=== PATIENT | male | born 1970 | race Caucasian/White ===

== ENCOUNTER → 2016-06-12 | Outpatient (CLI) | payer BC, OTHER ==
[~2016-06-12] MED LIST: COMBIVENT U/D3 M1 INH; DEEP SEA SPRAY AU; DEPAKOTE125 MG; FLOMAX0.4 M1 DOB; FLONASE 0.05% N16 G1; FLOVENT DISKUS50 MCG AU; KEPPRA100 MG/ML GT; KEPPRA1000 MG PO; KLONOPIN GT; KLONOPIN0.25 MG/TA GT; LACTULOSE10 G/15 M1 PO; LAMICTAL150 MG GT; LAMICTAL150 MG PO; LEVOTHROID50 MCG; LEVOTHYROXINE50 MC1 PO; MUPIROCIN0.9 GM EXT; MYLICON40 MG/0.1 GT; NEXIUM PO; NEXIUM40 M1 GT; ONFI10 MG PO; ONFI20 MG; ONFI20 MG GT; ONFI20 MG PO; PATADAY2.5 ML OU; PHENOBARBITAL60 M1 GT; PHENOBARBITAL64.8 MG GT; PRILOSEC20 M1 PO; RISAMINE OINTM113 GM TP; SENNA CONCENTR8.6 MG GT; SENNA-LAX8.6 M1 GT; SYNTHROID0.05 MG PO; VALPROIC A250 MG/51 GT; VALPROIC ACID1 ML GT; VITAMIN D1000 UNI1 PO; VITAMIN D1000 UNIT PO; ZYRTEC10 M2
== END | disposition home or self-care (01) ==
LOC: CSSDAY 10:08
DX: M81.8 Other osteoporosis without current pathological fracture (principal)
CPT/HCPCS: 96372; J0897

== ENCOUNTER 2016-08-15 03:32 | Inpatient (IN) | payer BC, OTHER ==
--- NOTE | ~2016-08-15 | EKG ---
PATIENT: CHADD WILLINGHAM UNIT #: [id number] Ventricular Rate: 83 BPM Atrial Rate: 83 BPM P-R Interval: 144 ms QRS Duration: 90 ms Q-T Interval: 362 ms QTC Calculation(Bezet): 425 ms P [place]: 44 degrees Calculated R [place]: 5 degrees Calculated T [place]: 47 degrees Diagnosis Line: Normal sinus rhythm Diagnosis Line: Normal ECG Diagnosis Line: No previous ECGs available Diagnosis Line: Confirmed by GINNY ALMANZAR MD ([id number]) on 08/15/2016 Diagnosis Line: 10:44:04 AM INTERPRETING MD: YOHAN PHIPPS
--- NOTE | ~2016-08-15 | CR72 ---
[facility] A Service of [facility] RADIOLOGY TEXT RESULTS PATIENT: CHADD WILLINGHAM LOCATION: [facility] : [birth year] UNIT #: [id number] AGE: [address]: Dominick Erwin MD SEX: M ORDER DR: [id number] [place], [place] [address] [id number] I MR#: [id number] Acc #: [id number] NAME: CHADD WILLINGHAM : 1970 SEX: M STUDY DATE/TIME: 08/26/2016 5:53 UNIT: [address] ROOM: [facility] STUDY DESCRIPTION: CR Chest Single View Portable Attending Physician: Dominick Erwin M.D. Ordering Physician: Zaria Mendosa M.D. Primary Care Physician: Naveen Dave Sr., M.D. MEDICAL IMAGING REPORT This report is preliminary unless electronic signature is present EXAM Portable chest INDICATIONS Shortness of breath, respiratory failure and pneumonia for 11 days. COMPARISON STUDIES Comparison with yesterday. FINDINGS Interval complete whiteout of the right hemithorax since yesterday most suggestive of atelectasis probably from mucous plugging. Improved aeration of the left base. Heart size stable. PICC line stable. IMPRESSION Interval complete whiteout of the right hemithorax with shift of the mediastinum to the right most likely reflecting atelectasis suspected to be due to mucous plugging. Dictated by... Janes Zamudio M.D. THIS IS AN ELECTRONICALLY VERIFIED REPORT Janes Zamudio M.D. at 08/28/2016 7:47 AM ARS/barb TD: 08/26/2016 14:02 JOB #: [id number] MEDICAL IMAGING REPORT [facility] A Service of [facility] RADIOLOGY TEXT RESULTS PATIENT: CHADD WILLINGHAM LOCATION: [facility] : 68 UNIT #: [id number] AGE: [address]: Dominick Erwin MD SEX: M ORDER DR: Page 1 of 1 COPY
--- NOTE | ~2016-08-15 | CR72 ---
[facility] A Service of [facility] RADIOLOGY TEXT RESULTS PATIENT: CHADD WILLINGHAM LOCATION: [place] [address] : [birth year] UNIT #: [id number] AGE: [address]: Dominick Erwin MD SEX: M ORDER DR: [id number] [facility] [address] [facility]. [place], [place] [address] [id number] I MR#: [id number] Acc #: [id number] NAME: CHADD WILLINGHAM : 1970 SEX: M STUDY DATE/TIME: 08/28/2016 19:56 UNIT: [facility] ROOM: [facility] STUDY DESCRIPTION: CR Chest Single View Portable Attending Physician: Dominick Erwin M.D. Ordering Physician: Zaria Mendosa M.D. Primary Care Physician: Naveen Dave Sr., M.D. MEDICAL IMAGING REPORT This report is preliminary unless electronic signature is present EXAM AP portable chest 08/28/2016 HISTORY Post intubation today. COMPARISON AP portable chest 08/28/2016 at 17:53. FINDINGS The patient's chin partially obscures the upper lung zones on 1 image, and repeat imaging was necessitated. ET tube tip projects into the region of the right mainstem bronchus. This is seen on image denoted as "#2". Low volume inspiration with asymmetric elevation right hemidiaphragm and probable passive right basilar atelectasis. Ill-defined infiltrates within the right lung, suspected atelectasis, infiltrate in the medial left lung base, unchanged from prior. Mid thoracic curvature toward the right. Upper lumbar curvature toward the left. Left chest wall electronic generator device in place with lead extending over the left neck. Right arm approach PICC tip extends to the cavoatrial junction. IMPRESSION 1. Chest x-ray denoted number 2 demonstrates ET tube placement within the right mainstem bronchus. Recommend retracting about 4.5 cm into the mid thoracic trachea. I have personally called to discuss the findings and recommendations with the patient's nurse at the time of this dictation, 08/28/2016 at 08:29 p.m. 2. Ill-defined right lung infiltrates and right basilar atelectasis, suspected mild medial left basilar atelectasis or infiltrate, unchanged from prior. [facility]. [facility] A Service of [facility] RADIOLOGY TEXT RESULTS PATIENT: CHADD WILLINGHAM LOCATION: [address] : [birth year] UNIT #: [id number] AGE: [address]: Dominick Erwin MD SEX: M ORDER DR: Dictated by... Adrianne Moe M.D. THIS IS AN ELECTRONICALLY VERIFIED REPORT Adrianne Moe M.D. at 08/29/2016 10:06 AM PITO/sim TD: 08/29/2016 08:27 JOB #: [id number] MEDICAL IMAGING REPORT Page 1 of 1 COPY
--- NOTE | ~2016-08-15 | OR ---
Unit #: [id number] #: [id number] Patient: CHADD WILLINGHAM [id number] [address] [address] [id number] I MR#: [id number] NAME: CHADD WILLINGHAM ROOM: [facility] Date of Procedure: 08/28/2016 Admission Date: 08/15/2016 Surgeon: Zaria Mendosa M.D. : 1970 Attending Physician: Dominick Erwin M.D. Primary Care Physician: Naveen Dave Sr., M.D. PROCEDURE OPERATIVE NOTE PROCEDURE PERFORMED Diagnostic bronchoscopy, bronchoalveolar lavage. INDICATION FOR PROCEDURE Mucus plug. PREPROCEDURE DIAGNOSIS Mucus plug. POSTPROCEDURE DIAGNOSIS Mucus plug. DETAILS OF PROCEDURE After taking consent from the patient's family, explaining the risks and benefits, patient was placed in the appropriate position. The bronchoscope was introduced through the oral cavity. The vocal cords appeared to be symmetrically moving toward the midline. Trachea was normal. The fiona was sharp. We examined the right upper lobe, right middle lobe, right lower lobe, left upper lobe, lingula and left lower lobe. There was a thick mucus plug in the right mainstem bronchus, which was therapeutically suctioned and bronchoalveolar lavage was done. The patient tolerated the procedure very well. No endobronchial lesions were found. No complications happened. Dictated by... Alea Garland/pearl TD: 08/28/2016 12:24 JOB #: [id number] Unit #: [id number] #: [id number] Patient: CHADD WILLINGHAM PROCEDURE OPERATIVE NOTE Page 1 of 1 X Zaria Mendosa MD PROCEDURE OPERATIVE NOTE
--- NOTE | ~2016-08-15 | DS ---
Unit #: [id number] #: [id number] Patient: CHADD WILLINGHAM [id number] [address] [address] [id number] I MR#: [id number] NAME: CHADD WILLINGHAM ROOM: [facility] Age: 46 Sex: M Admission Date: 08/15/2016 : 1970 Discharge Date: 09/09/2016 Attending Physician: Dominick Erwin M.D. Primary Care Physician: Naveen Dave Sr., M.D. DISCHARGE SUMMARY FINAL DIAGNOSES 1. Acute hypoxic respiratory failure. Patient has been terminally extubated as per family's request. 2. Aspiration pneumonia. 3. Cerebral palsy. 4. Seizure disorder. 5. Septic shock. 6. Hypokalemia. 7. Hypomagnesemia. 8. Mucus plugs. Please note, patient had a very lengthy stay in the hospital. Dr. Mendosa and Dr. Valverde were involved in patient's care. CONSULTING PHYSICIANS 1. Dr. Mendosa and Dr. Valverde from pulmonary services. 2. Dr. Robles from infectious disease services. 3. Dr. Hopper from neurology services. HOSPITAL COURSE Patient was admitted for acute respiratory failure. He has had very length stay. During hospitalization, he received broad spectrum IV antibiotics. He went into acute hypoxia. Patient was intubated, and multiple attempts to wean have failed. Patient's family has decided for Do Not Resuscitate status and comfort care. Patient is being discharged to [facility] in stable condition. PHYSICAL EXAMINATION VITAL SIGNS ON DISCHARGE: Blood pressure 92/36, respiratory rate 20, pulse 91, and temperature 98.2. CHEST: Decreased air entry bilaterally. DISCHARGE INSTRUCTIONS 1. Patient is being discharged to [facility]. 2. Comfort care and palliative care. The plan of care has been discussed with Dr. Dave. Dictated by.Tony Metz M.D. Jonh TD: 09/09/2016 18:14 Unit #: [id number] #: [id number] Patient: CHADD WILLINGHAM JOB #: [id number] DISCHARGE SUMMARY Page 1 of 1 X Izzy Metz MD DISCHARGE SUMMARY
--- NOTE | ~2016-08-15 | CR72 ---
[facility] A Service of [facility] & [facility] RADIOLOGY TEXT RESULTS PATIENT: CHADD WILLINGHAM LOCATION: [address] : [birth year] UNIT #: [id number] AGE: [address]: Dominick Erwin MD SEX: M ORDER DR: [id number] [facility] [address] [facility]. [place], [place] [address] [id number] I MR#: [id number] Acc #: [id number] NAME: CHADD WILLINGHAM : 1970 SEX: M STUDY DATE/TIME: 08/28/2016 21:05 UNIT: [facility] ROOM: [facility] STUDY DESCRIPTION: CR Chest Single View Portable Attending Physician: Dominick Erwin M.D. Ordering Physician: Zaria Mendosa M.D. Primary Care Physician: Naveen Dave Sr., M.D. MEDICAL IMAGING REPORT This report is preliminary unless electronic signature is present EXAM Chest x-ray portable HISTORY ET tube placement today. Admitted 08/15/2016. Short of air. COMMENT Single frontal portable view of the chest timed 210408/28/2016 compared to prior study from 1955. FINDINGS Endotracheal tube has been repositioned and now terminates at the thoracic inlet. There is, I believe, a vagus nerve stimulator present. The right-sided PICC line terminates probably distal SVC/right atrial junction level allowing for positioning. The patient has dextroconvexed scoliosis and elevation of the right hemidiaphragm. Please correlate for diaphragmatic paralysis history. Patchy airspace disease is seen bilaterally, right greater than left. Please correlate for clinical causes of cardiogenic or noncardiogenic pulmonary edema. There is no pneumothorax or pleural effusion suspected. IMPRESSION 1. The endotracheal tube is now satisfactory. Tubes and lines, otherwise, not changed. There is some elevation of the right hemidiaphragm. Heart size is normal. Bilateral infiltrates right greater than left lung, nonspecific. Please correlate for clinical causes of cardiogenic or noncardiogenic pulmonary edema. A noncardiogenic cause is favored given cardiac silhouette size within normal limits. Dictated by... [facility] A Service of [facility] & [facility] RADIOLOGY TEXT RESULTS PATIENT: CHADD WILLINGHAM LOCATION: [address] : [birth year] UNIT #: [id number] AGE: [address]: Dominick Erwin MD SEX: M ORDER DR: Tish Nelson M.D. THIS IS AN ELECTRONICALLY VERIFIED REPORT Tish Nelson M.D. at 08/29/2016 2:27 PM SPENCER/alek TD: 08/29/2016 09:01 JOB #: [id number] MEDICAL IMAGING REPORT Page 1 of 1 COPY
--- NOTE | ~2016-08-15 | OR ---
Unit #: [id number] #: [id number] Patient: CHADD WILLINGHAM [id number] [address] [address] [id number] I MR#: [id number] NAME: CHADD WILLINGHAM ROOM: [facility] Date of Procedure: 08/15/2016 Admission Date: 08/15/2016 Surgeon: Zaria Mendosa M.D. : 1970 Attending Physician: Dominick Erwin M.D. Primary Care Physician: Naveen Dave Sr., M.D. PROCEDURE OPERATIVE NOTE PROCEDURE Diagnostic bronchoscopy. INDICATION Mucous plug. PREPROCEDURE DIAGNOSIS Mucous plug. POSTPROCEDURE DIAGNOSIS Mucous plug. DETAILS OF PROCEDURE After taking consent from the patient's family explaining the risks and benefits, the patient was placed in appropriate position. Bronchoscope introduced through the endotracheal tube which was sitting well above the fiona. There was a big thick mucous plug in the left mainstem bronchus and we did a bronchial lavage and the mucous plug was suctioned. Then we examined right upper, right middle, right lower, left upper, left lower lobe and lingula. No endobronchial lesion was found. There were thick mucoid secretions which were therapeutically suctioned. The patient tolerated the procedure very well. No complications happened. Dictated by... Alea Garland/paco TD: 08/30/2016 18:27 JOB #: [id number] Unit #: [id number] #: [id number] Patient: CHADD WILLINGHAM PROCEDURE OPERATIVE NOTE Page 1 of 1 X Zaria Mendosa MD X PROCEDURE OPERATIVE NOTE
--- NOTE | ~2016-08-15 | CO ---
Unit #: [id number] #: [id number] Patient: CHADD WILLINGHAM [id number] [facility] [address] [facility]. [place], [place] [address] [id number] I MR#: [id number] NAME: CHADD WILLINGHAM ROOM: [facility] Age: 46 Sex: M Admission Date: 08/15/2016 : 1970 Attending Physician: Dominick Erwin M.D. Primary Care Physician: Naveen Dave Sr., M.D. Consultation Date: 08/17/2016 CONSULTATION REPORT PRIMARY CARE PHYSICIAN Naveen Dave M.D. Sr. REASON FOR CONSULTATION Seizure. PATIENT IDENTIFICATION This is a 46-year-old white male, who was evaluated in room ICU, bed 11 at [facility]. SOURCE OF INFORMATION The medical records and my discussion with the patient's parents. PROBLEM LIST He was admitted for: 1. Acute hypoxemic respiratory failure. He is on a ventilator. 2. Healthcare-acquired pneumonia. 3. Sepsis. 4. History of cerebral palsy. 5. History of seizure disorder. 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 He is also status post vagal nerve stimulator, on multiple antiepileptics. 7. Dysphagia, status post PEG tube. 8. Status post colostomy bag. 9. Anemia of chronic disease. HISTORY OF PRESENT ILLNESS This is a 46-year-old gentleman, who is actually a patient of Dr. Jessica Flynn, and has epilepsy and most of the time they report petite-mal type seizure, but he has Nekoma-Gastaut syndrome and has had generalized convulsive type seizures also. His seizures are worse when he is sick, so he was admitted here because he got respiratory depression and pneumonia, and yesterday he may have had a generalized seizure. I resumed some of his medication IV and gave him Ativan and he is better right now. He was also already on Versed drip at 2 mg I believe at that time. This is exactly what happens to him and it does happen quite frequently and Ativan helps him. He is on multiple antiepileptics and I have discussed with the family and the decision was not to change his medication otherwise. He has improved his withdrawing. He does not interact much, but apparently is aware enough that whenever Unit #: [id number] #: [id number] Patient: CHADD WILLINGHAM his environment changes, he gets upset. His other very questionable. It does not look like he is in status. He was getting his medication dose, sometime he does throw up. PAST MEDICAL HISTORY As discussed above. PAST SURGICAL HISTORY As discussed above. ALLERGIES None known to us. FAMILY HISTORY Noncontributory. No seizures. SOCIAL HISTORY He has cognitive changes secondary to his cerebral palsy. He is in a assisted and when he is compromised, he is in [place]. MEDICATIONS Right now, which do include some that are at home are Zosyn, Senokot, Synthroid, magnesium sulfate, potassium chloride, Versed, Onfi 20 mg at bedtime and 10 mg b.i.d., phenobarbital 64.8 mg q.h.s., Lamictal 300 mg b.i.d., Klonopin 0.5 mg q.8, Mylicon 20 mg t.i.d., valproic acid 375 mg b.i.d., Keppra 200 mg q.12, Protonix, vitamin D, Florastor, Flonase, vancomycin. REVIEW OF SYSTEMS Could not be obtained because of his compromised state. PHYSICAL EXAMINATION VITAL SIGNS: Temperature 97.3, pulse 84, respirations 16, blood pressure 114/63, O2 saturations 100%. Weight of 137 pounds, BMI was 21. NEUROLOGIC: The patient does respond to painful stimuli. He seemed to withdraw. Beyond that, he is not communicative. Cranial nerve examination, he does have corneals and pupils sluggishly reactive. He may have some dysconjugate gaze. . I really did not see any facial asymmetry. Hearing is questionable. Tongue was midline. I could not visualize his oropharynx or uvula. Head turning was spontaneous. Motor examination demonstrated spasticity, very minimal withdrawal in the upper extremities and did not see significant movement except for 1 to 2 in the lower extremities. I could not get any reflexes. Toes are mute. Gait and coordination could not be evaluated. DIAGNOSTIC STUDIES LABORATORY RESULTS: His pO2 when he came here was 40.3, he has improved now significantly and his last pO2 was 209. Random glucose was 109, sodium was 132, AST was 109, ALT was 26. Phenobarbital level not checked. Depakene level not checked. White count was 17.8, H and H of 8.1 and 24.2, platelet count was 140. Unit #: [id number] #: [id number] Patient: CHADD WILLINGHAM IMPRESSION 1. Likely breakthrough seizures. 2. He is improved right now. He is not in status. He has Zoran-Gastaut syndrome. He has slightly intractable epilepsy. I will continue the present medication and have him follow up with Neurology as outpatient. Since we do not do epilepsy monitoring or have continuous monitoring capabilities, I will recommend that next time if there is a seizure or seizure-like events or status that he will be transferred to [facility]. I do understand at times it is not possible, but considering that his physicians do not come here and we have not had any records since he has been here and they have requested this is where the problems occur and that is my recommendation and at present, he is stable and his family agrees and I will observe him only. Again loss of consciousness precautions apply, but may not make much difference for his care otherwise because it looks like he is already on it. Call me if you have any other questions, issues, or concerns. Nothing else to add. Otherwise, I gave him one time medication of Ativan. I will continue the rest of his medication as is. Dictated by... Alea Gannon/pelon TD: 08/18/2016 06:03 JOB #: [id number] CONSULTATION REPORT Page 1 of 1 X Tino Hopper MD CONSULTATION REPORT
--- NOTE | ~2016-08-15 | CR72 ---
[facility] A Service of [facility] & [facility] RADIOLOGY TEXT RESULTS PATIENT: CHADD WILLINGHAM LOCATION: [place] [address] : [birth year] UNIT #: [id number] AGE: [address]: Dominick Erwin MD SEX: M ORDER DR: [id number] [facility] [address] [facility]. [place], [place] [address] [id number] I MR#: [id number] Acc #: [id number] NAME: CHADD WILLINGHAM : 1970 SEX: M STUDY DATE/TIME: 09/03/2016 5:52 UN[place]: [facility] [place]OM: [facility] STUDY DESCRIPTION: CR Chest Single View Portable Attending Physician: Dominick Erwin M.D. Ordering Physician: Zaria Mendosa M.D. Primary Care Physician: Naveen Dave Sr., M.D. MEDICAL IMAGING REPORT This report is preliminary unless electronic signature is present EXAM Portable chest INDICATION Intubated for respiratory distress and fever. Follow up endotracheal tube and infiltrates. FINDINGS This portable view of the chest shows the endotracheal tube tip is 2 cm above the fiona. There is increased density throughout the lower two-thirds of the right hemithorax suggesting an effusion and atelectasis and there is left base atelectasis or infiltrate. The PIC catheter and electronic device in the left side of the chest are stable. Dictated by... Bobby Mederos M.D. THIS IS AN ELECTRONICALLY VERIFIED REPORT Bobby Mederos M.D. at 09/03/2016 3:54 PM DUSTIN/sim TD: 09/03/2016 13:39 JOB #: [id number] MEDICAL IMAGING REPORT Page 1 of 1 COPY
--- NOTE | ~2016-08-15 | CT57 ---
[facility] A Service of [facility] & [facility] RADIOLOGY TEXT RESULTS PATIENT: CHADD WILLINGHAM LOCATION: [place] [address] : [birth year] UNIT #: [id number] AGE: [address]: Dominick Erwin MD SEX: M ORDER DR: [id number] [facility] [address] [facility]. [place], [place] [address] [id number] I MR#: [id number] Acc #: [id number] NAME: CHADD WILLINGHAM : 1970 SEX: M STUDY DATE/TIME: 08/20/2016 12:52 UNIT: [facility] ROOM: [facility] STUDY DESCRIPTION: CT Chest Wo Cont Attending Physician: Dominick Erwin M.D. Ordering Physician: Zaria Mendosa M.D. Primary Care Physician: Naveen Dave Sr., M.D. MEDICAL IMAGING REPORT This report is preliminary unless electronic signature is present EXAM CT chest without contrast. HISTORY Shortness of air, pneumonia. Low oxygen saturation and congestion for 2 days. Respiratory disease. TECHNIQUE This CT exam was performed with one or more of the following radiation dose reduction techniques: automatic exposure control, adjustment of mA and/or kV according to patient size, and iterative reconstruction. FINDINGS CT chest without contrast demonstrates complete atelectasis of the bilateral lower lobes and moderate atelectasis in the bilateral posterior upper lobes. There is also a focal patchy dense subsegmental infiltrate in the central left upper lobe, which could be secondary to pneumonia but is nonspecific. Evaluation of this region is limited on the recent portable chest x-rays due to overlying power pack, but this is probably partly visible along the superior left hilum, and has apparently developed compared to recent chest x-rays dating back to 08/15/16. Pneumonia is considered most likely but this is nonspecific. Moderately severe elevation of the right hemidiaphragm. Small bilateral pleural effusions. No adenopathy. Percutaneous gastrostomy tube extends into the stomach. IMPRESSION 1. Complete atelectasis of the bilateral lower lobes. Mild atelectasis in the bilateral posterior upper lobes. 2. Moderate focal subsegmental infiltrate in the central left upper lobe is only partly visualized on recent chest x-rays and apparently has developed since 08/15/16. Overlying power pack partly obscures the left lung on chest x-rays. Although, nonspecific this could be due to subsegmental left upper lobe pneumonia. [facility] A Service of [facility] & [facility] RADIOLOGY TEXT RESULTS PATIENT: CHADD WILLINGHAM LOCATION: [address] : [birth year] UNIT #: [id number] AGE: [address]: Dominick Erwin MD SEX: M ORDER DR: 3. Moderately severe elevation of the right hemidiaphragm. 4. No adenopathy. Dictated by... Param Madrigal M.D. THIS IS AN ELECTRONICALLY VERIFIED REPORT Param Madrigal M.D. at 08/20/2016 10:50 PM LUIS/gustavo TD: 08/20/2016 21:43 JOB #: [id number] MEDICAL IMAGING REPORT Page 1 of 1 COPY
--- NOTE | ~2016-08-15 | CR72 ---
[facility] A Service of [facility] & [facility] RADIOLOGY TEXT RESULTS PATIENT: CHADD WILLINGHAM LOCATION: [place] [address] : [birth year] UNIT #: [id number] AGE: [address]: Dominick Erwin MD SEX: M ORDER DR: [id number] [facility] [address] [facility]. [place], [place] [address] [id number] I MR#: [id number] Acc #: [id number] NAME: CHADD WILLINGHAM : 1970 SEX: M STUDY DATE/TIME: 09/04/2016 5:46 UNIT: [facility] ROOM: [facility] STUDY DESCRIPTION: CR Chest Single View Portable Attending Physician: Dominick Erwin M.D. Ordering Physician: Zaria Mendosa M.D. Primary Care Physician: Naveen Dave Sr., M.D. MEDICAL IMAGING REPORT This report is preliminary unless electronic signature is present EXAM Portable chest, 09/04/2016 HISTORY 46-year-old male with respiratory failure for 20 days. Shortness of breath. COMPARISON Chest, 09/03/2016 FINDINGS Frontal chest demonstrates tubes and lines in stable position. No pneumothorax. Persistent bilateral pleural effusions, right greater than left. Bibasilar atelectasis/infiltrate is unchanged. Heart size and mediastinum stable. Left-sided vagal stimulator device. IMPRESSION 1. Tubes and lines are stable. No pneumothorax. 2. No interval improvement in bilateral pleural effusions and bibasilar atelectasis/infiltrate. Dictated by... Kristian Parra M.D. THIS IS AN ELECTRONICALLY VERIFIED REPORT Kristian Parra M.D. at 09/04/2016 3:23 PM TAMARA/asael TD: 09/04/2016 08:08 JOB #: [id number] MEDICAL IMAGING REPORT Page 1 of 1 COPY
--- NOTE | ~2016-08-15 | CR72 ---
[facility] A Service of [facility] & [facility] RADIOLOGY TEXT RESULTS PATIENT: CHADD WILLINGHAM LOCATION: [place] [address] : [birth year] UNIT #: [id number] AGE: [address]: Dominikc Erwin MD SEX: M ORDER DR: [id number] [facility] [address] [facility]. [place], [place] [address] [id number] I MR#: [id number] Acc #: [id number] NAME: CHADD WILLINGHAM : 1970 SEX: M STUDY DATE/TIME: 09/07/2016 5:10 UNIT: [facility] ROOM: [facility] STUDY DESCRIPTION: CR Chest Single View Portable Attending Physician: Dominick Erwin M.D. Ordering Physician: Zaria Mendosa M.D. Primary Care Physician: Naveen Dave Sr., M.D. MEDICAL IMAGING REPORT This report is preliminary unless electronic signature is present EXAM Portable chest INDICATION Follow up respiratory failure and endotracheal tube. FINDINGS Today's portable view of the chest shows no change from yesterday's study with bilateral infiltrates and probable bilateral effusions. The endotracheal tube is in good position. Dictated by... Bobby Mederos M.D. THIS IS AN ELECTRONICALLY VERIFIED REPORT Bobby Mederos M.D. at 09/07/2016 1:31 PM DUSTIN/sim TD: 09/07/2016 11:21 JOB #: [id number] MEDICAL IMAGING REPORT Page 1 of 1 COPY
--- NOTE | ~2016-08-15 | EKG ---
PATIENT: CHADD WILLINGHAM UNIT #: [id number] Ventricular Rate: 69 BPM Atrial Rate: 69 BPM P-R Interval: 124 ms QRS Duration: 92 ms Q-T Interval: 444 ms QTC Calculation(Bezet): 475 ms P [place]: 56 degrees Calculated R [place]: 30 degrees Calculated T [place]: 40 degrees Diagnosis Line: Normal sinus rhythm Diagnosis Line: Prolonged QT Diagnosis Line: Poor data quality Diagnosis Line: Abnormal ECG Diagnosis Line: When compared with ECG of 05-SEP-2016 10:01, Diagnosis Line: T wave inversion no longer evident in Inferior Diagnosis Line: leads Diagnosis Line: QT has lengthened Diagnosis Line: Confirmed by ANA CHARLTON MD ([id number]) on 09/08/2016 Diagnosis Line: 4:38:06 PM INTERPRETING MD: LATESHA PHPIPS
--- NOTE | ~2016-08-15 | CR72 ---
[facility] A Service of [facility] & [facility] RADIOLOGY TEXT RESULTS PATIENT: CHADD WILLINGHAM LOCATION: [place] [address] : [birth year] UNIT #: [id number] AGE: [address]: Dominick Erwin MD SEX: M ORDER DR: [id number] [facility] [address] [facility]. [place], [place] [address] [id number] I MR#: [id number] Acc #: [id number] NAME: CHADD WILLINGHAM : 1970 SEX: M STUDY DATE/TIME: 08/16/2016 04:30 UNIT: [facility] ROOM: [facility] STUDY DESCRIPTION: CR Chest Single View Portable Attending Physician: Dominick Erwin M.D. Ordering Physician: Zaria Mendosa M.D. Primary Care Physician: Naveen Dave Sr., M.D. MEDICAL IMAGING REPORT This report is preliminary unless electronic signature is present EXAM Portable chest 08/16/2016 04:30 INDICATION Respiratory failure. Intubated. FINDINGS AP portable chest compared with 08/15/2016. ET tube mid trachea. New right arm PICC is at the right atrial level. Again seen is severe scoliosis. There is continued dense opacity at the right base with probably some elevation of the right hemidiaphragm. There is vascular congestion and probably mild generalized edema as well. No pneumothorax. Dictated by... John Robison Jr., M.D. THIS IS AN ELECTRONICALLY VERIFIED REPORT John Robison Jr., M.D. at 08/19/2016 8:36 AM ANGEL/sim TD: 08/16/2016 06:57 JOB #: [id number] MEDICAL IMAGING REPORT Page 1 of 1 COPY
--- NOTE | ~2016-08-15 | CR72 ---
[facility] A Service of [facility] & [facility] RADIOLOGY TEXT RESULTS PATIENT: CHADD WILLINGHAM [address] : [birth year] UNIT #: [id number] AGE: [address]: Dominick Erwin MD SEX: M ORDER DR: [id number] [facility] [address] [facility]. [place], [place] [address] [id number] I MR#: [id number] Acc #: [id number] NAME: CHADD WILLINGHAM : 1970 SEX: M STUDY DATE/TIME: 08/15/2016 04:06 UNIT: [facility] ROOM: [id number] STUDY DESCRIPTION: CR Chest Single View Portable Attending Physician: Dominick Erwin M.D. Ordering Physician: Joesph Zimmer M.D. Primary Care Physician: Naveen Dave Sr., M.D. MEDICAL IMAGING REPORT This report is preliminary unless electronic signature is present EXAM Portable chest 08/15/2016 04:06 INDICATION Endotracheal tube placement tonight. Shortness of air, pneumonia. FINDINGS AP portable chest was obtained. No comparison. ET tube is in the mid trachea. There is dextroscoliosis. There is atelectasis at the right base. The left hemithorax is completely opacified. The left mainstem bronchus may be occluded either by tumor or potentially mucous plug. Consider bronchoscopy for follow up. No pneumothorax. Dictated by... John Robison Jr., M.D. THIS IS AN ELECTRONICALLY VERIFIED REPORT John Robison Jr., M.D. at 08/15/2016 10:13 PM ANGEL/sim TD: 08/15/2016 06:42 JOB #: [id number] MEDICAL IMAGING REPORT Page 1 of 1 COPY
--- NOTE | ~2016-08-15 | CR72 ---
[facility] A Service of [facility] & [facility] RADIOLOGY TEXT RESULTS PATIENT: CHADD WILLINGHAM LOCATION: [facility] [address] : [birth year] UNIT #: [id number] AGE: [address]: Dominick Erwin MD SEX: M ORDER DR: [id number] [place] [id number] [facility]. [place], [place] [address] [id number] I MR#: [id number] Acc #: [id number] NAME: CHADD WILLINGHAM : 1970 SEX: M STUDY DATE/TIME: 08/23/2016 4:55 UNIT: [facility] ROOM: [facility] STUDY DESCRIPTION: CR Chest Single View Portable Attending Physician: Dominick Erwin M.D. Ordering Physician: Zaria Mendosa M.D. Primary Care Physician: Naveen Dave Sr., M.D. MEDICAL IMAGING REPORT This report is preliminary unless electronic signature is present EXAM Single view chest INDICATION Respiratory failure. Shortness of air. FINDINGS Single portable AP view of the chest compared to 08/22/2016. Right PICC is unchanged. Heart and mediastinal contours are stable. There is slight improvement in bilateral interstitial opacities. Bilateral pleural effusions are suspected. No pneumothorax. IMPRESSION Improving bilateral interstitial opacities. Dictated by... Peng Garcia M.D. THIS IS AN ELECTRONICALLY VERIFIED REPORT Peng Garcia M.D. at 08/27/2016 7:03 AM NEHEMIAS/sim TD: 08/23/2016 06:13 JOB #: [id number] MEDICAL IMAGING REPORT Page 1 of 1 COPY
--- NOTE | ~2016-08-15 | CR72 ---
[facility] A Service of [facility] & [facility] RADIOLOGY TEXT RESULTS PATIENT: CHADD WILLINGHAM LOCATION: [place] [address] : [birth year] UNIT #: [id number] AGE: [address]: Dominick Erwin MD SEX: M ORDER DR: [id number] [facility] [address] [facility]. [place], [place] [address] [id number] I MR#: [id number] Acc #: [id number] NAME: CHADD WILLINGHAM : 1970 SEX: M STUDY DATE/TIME: 08/20/2016 4:03 UNIT: [facility] ROOM: [facility] STUDY DESCRIPTION: CR Chest Single View Portable Attending Physician: Dominick Erwin M.D. Ordering Physician: Zaria Mendosa M.D. Primary Care Physician: Naveen Dave Sr., M.D. MEDICAL IMAGING REPORT This report is preliminary unless electronic signature is present Coronal and C 1970 EXAM Single view chest INDICATIONS Respiratory failure. Pneumonia. FINDINGS Single frontal portable AP view chest compared to 08/19/2016. The right PICC remains in place. Heart and mediastinal contours are unchanged. Bibasilar airspace opacities, right greater than left and associated pleural effusions are similar to the prior study. No pneumothorax. IMPRESSION No interval change. Dictated by... Peng Garcia M.D. THIS IS AN ELECTRONICALLY VERIFIED REPORT Peng Garcia M.D. at 08/20/2016 9:07 PM NEHEMIAS/orlando TD: 08/20/2016 07:24 JOB #: [id number] MEDICAL IMAGING REPORT Page 1 of 1 COPY
--- NOTE | ~2016-08-15 | FU ---
[facility] & [facility] DATE: 08/28/16 Patient: CHADD WILLINGHAM Physician: RAHEEM Address: [facility] Room/Bed: [address] [place] [address], Zip: [place] [address] Admit Date: 08/15/16 Date of : [birth year] Height: 5 7 Weight: 130 59 NUTRITION MONITORING/FOLLOW-UP: Reason: PT SEEN FOR FOLLOW-UP/ENTERAL NUTRITION SUPPORT DX: SOA Anthropometrics: 5'7", WT: 130# ( 59 KG), BMI: 20.4 -WEIGHTS HAVE BEEN STABLE SINCE ADMIT Labs: CREAT: 0.5, ALB: 1.9 Meds: NACL, SYNTHROID (GTUBE), KCL, VITAMIN D, PROTONIX I&O's: 1280/1300 Skin: COLOSTOMY EDEMA: PEDAL/ANKLE 1+/PITTING EDEMA; RICARDO HANDS/ARMS GENERAL EDEMA Estimated Nutrition Needs: [id number] KCAL 70-88 G PRO Assessment: CHART REVIEWED AND EVENTS NOTED. PT SEEN FOR ENTERAL NUTRITION SUPPORT FOLLOW-UP. PT OUT OF ROOM AT TIME OF VISIT FOR BRONCHOSCOPY. PER RN AND CHART, PT CURRENTLY NPO 2' PROCEDURE, PT WAS RECEIVING ENTERAL NUTRITION SUPPORT OF JEVITY 1.5 @ 50 ML/HR X 22 HOURS (PT ON SYNTHROID-HOLD FOR ONE HOUR BEFORE AND ONE HOUR AFTER ADMINISTRATION). PT TOLERATING EN, NOTING NO ISSUES/RESIDUALS. RD TO CONTINUE TO FOLLOW. Dx: INADEQUATE PROTEIN-ENERGY INTAKE R/T PMH, DYSPHAGIA AEB ENTERAL NUTRITION SUPPORT IN PLACE.-NOT ACTIVE NEW DX: INADEQUATE ENTERAL NUTRITION INFUSION R/T BRONCHOSCOPY AEB NPO STATUS. Intervention: 1. NPO Monitoring, Evaluation and Goals: 1. ENTERAL NUTRITION SUPPORT; PROVIDE >80% ESTIMATED NUTRIENT NEEDS AT GOAL X 22 HOURS-NOT MET/IN PROGRESS 2. WEIGHTS; PROMOTE WEIGHT MAINTENANCE-IN PROGRESS 3; LABS; WNL-IN PROGRESS MONITOR: -RE-INITIATION OF EN/RATE/RESIDUALS -WEIGHTS [facility] & [facility] DATE: 08/28/16 Patient: CHADD WILLINGHAM Physician: RAHEEM Address: [facility] Room/Bed: [address] [place] [address], Zip: [place] [address] Admit Date: 08/15/16 Date of : [birth year] Height: 5 7 Weight: 130 59 -LABS Recommendations: 1. ONCE MEDICALLY FEASIBLE, RE-INITIATE PRIOR ENTERAL NUTRITION SUPPORT OF JEVITY 1.5 @ 50 ML/HR X 22 HOURS (PT ON SYNTHROID-HOLD ONE HOUR BEFORE AND ONE HOUR AFTER ADMINSTRATION) -PROVIDES 1650 KCAL, 70 G PRO, 836 ML FREE H20 CONTINUE FREE H20 FLUSHES PER MD OR 210 ML QID TO MEET PT'S CURRENT ESTIMATED FLUID NEEDS OR MANAGE PER MD 2. CONTINUE TO MONITOR FOR SIGNS OF INTOLERANCE OF ENTERAL NUTRITION SUPPORT RD WILL F/U PER PROTOCOL PT IS MILD/MODERATELY COMPROMISED Respectfully, JESS GRIJALVA MS, RD, LD Food and Nutritional Services [facility] cc: client file
--- NOTE | ~2016-08-15 | CR72 ---
[facility] A Service of [facility] & [facility] RADIOLOGY TEXT RESULTS PATIENT: CHADD WILLINGHAM LOCATION: [address] : [birth year] UNIT #: [id number] AGE: [address]: Dominick Erwin MD SEX: M ORDER DR: [id number] [facility] [address] [facility]. [place], [place] [address] [id number] I MR#: [id number] Acc #: [id number] NAME: CHADD WILLINGHAM : 1970 SEX: M STUDY DATE/TIME: 08/15/2016 8:35 UNIT: [facility] ROOM: [id number] STUDY DESCRIPTION: CR Chest Single View Portable Attending Physician: Dominick Erwin M.D. Ordering Physician: Zaria Mendosa M.D. Primary Care Physician: Naveen Dave Sr., M.D. MEDICAL IMAGING REPORT This report is preliminary unless electronic signature is present EXAM Frontal chest 08/15/2016 INDICATION Status post bronchoscopy. Intubated. Low 02 sats. Symptoms began today. TECHNIQUE Frontal chest compared with 0406 hours. FINDINGS ET tube tip in good position above the fiona. Cardiac silhouette within normal limits. Mediastinal shift to the left has resolved following the bronchoscopy. Significant improvement of aeration of the left lung. There is some new probable atelectasis in the right lung base. No pneumothorax. There is advanced scoliosis. IMPRESSION 1. Significant improvement in the appearance of left lung following bronchoscopy. No pneumothorax. 2. Low lung volumes and probable atelectasis in the right lung base, increased from the prior study. 3. Scoliosis. ET tube tip in good position above the fiona. STAT * RESULT Dictated by... Dusty Lewis M.D. THIS IS AN ELECTRONICALLY VERIFIED REPORT Dusty Lewis M.D. at 08/15/2016 5:00 PM DREW/sim [facility] A Service of [facility] & [facility] RADIOLOGY TEXT RESULTS PATIENT: CHADD WILLINGHAM LOCATION: CIC[facility] CICCU2-11 : [birth year] UNIT #: [id number] AGE: [address]: Dominick Erwin MD SEX: M ORDER DR: TD: 08/15/2016 09:03 JOB #: [id number] MEDICAL IMAGING REPORT Page 1 of 1 COPY
--- NOTE | ~2016-08-15 | CO ---
Unit #: [id number] #: [id number] Patient: CHADD WILLINGHAM [id number] [address] [address] [id number] I MR#: [id number] NAME: CHADD WILLINGHAM ROOM: [facility]3 Age: 46 Sex: M Admission Date: 08/15/2016 : 1970 Attending Physician: Dominick Erwin M.D. Primary Care Physician: Naveen Dave Sr., M.D. Consultation Date: 08/15/2016 CONSULTATION REPORT REASON FOR CONSULTATION Acute respiratory failure, mucous plug. HISTORY OF PRESENT ILLNESS The patient is a 46-year-old male who is a resident of a halfway has presented with complaint of fever, chills, rigors, shortness of breath. He has mental retardation. He was intubated currently on pressors. I am seeing him at the bedside. I have done an emergent bronchoscopy with suction of the mucous plug in his lung and he has recovered in terms of his oxygenation. Currently on ventilatory, sedated. PAST MEDICAL HISTORY 1. Cerebral palsy. 2. Seizure disorder. 3. Dysphagia. PAST SURGICAL HISTORY 1. PEG tube placement. 2. Colostomy. 3. Vagal nerve stimulator. HOME MEDICATIONS Include: 1. Synthroid. 2. Combivent. 3. Pataday. 4. Flovent nasal spray. 5. Nexium. 6. Onfi. 7. Phenobarbital. 8. Sennoside. 9. Klonopin. 10. Mylicon. 11. Lamictal. 12. Keppra. 13. Valproic acid. 14. Vitamin D. ALLERGIES No known drug allergies. SOCIAL HISTORY Lives at a halfway. Unit #: [id number] #: [id number] Patient: CHADD WILLINGHAM FAMILY HISTORY Unremarkable. PHYSICAL EXAMINATION VITAL SIGNS: Temperature 100, pulse 87, respirations 16, blood pressure 91/50. NEUROLOGIC: He is currently sedated on a ventilator. LUNGS: Bilateral air entry, bilateral mild rhonchi. HEART: S1 plus S2. ABDOMEN: Nontender, soft. Positive bowel sounds. EXTREMITIES: Positive edema. SKIN: No rashes. LYMPHATIC: No lymphadenopathy. DIAGNOSTIC STUDIES IMAGING: Chest x-ray on presentation left hemithorax completely opacified. ASSESSMENT AND PLAN 1. Acute respiratory failure. 2. Shock. 3. Healthcare-associated pneumonia. 4. Mental retardation. 5. Mucous plug. PLAN 1. Do bronchoscopy. 2. Continue oxygen, bronchodilator, ventilator support, broad-spectrum IV antibiotics. 3. GI and DVT prophylaxis. 4. IV fluid. 5. Please see orders for detailed plan. Thank you very much for this consultation. Dictated by... Alea Garland/paco TD: 08/30/2016 18:13 JOB #: [id number] CONSULTATION REPORT Page 1 of 1 X Zaria Mendosa MD X CONSULTATION REPORT
--- NOTE | ~2016-08-15 | FU ---
[facility] Nutrition Therapy DATE: 08/23/16 Patient: CHADD WILLINGHAM Physician: RAHEEM Address: [facility] Room/Bed: [address], Zip: [place] [address] Admit Date: 08/15/16 Date of : [birth year] Height: 5 7 Weight: 130 59 NUTRITION MONITORING/FOLLOW-UP: Reason: PT SEEN FOR FOLLOW-UP DX: SOA, ACUTE RESP FAILURE Anthropometrics: 5'7", WT: 134# (61 KG), BMI: 21.0 -WEIGHTS HAVE BEEN STABLE SINCE ADMIT Labs: BUN: 7, CREAT: 7.8, ALB: 1.7 Meds: NACL, SYNTHROID (G-TUBE), KCL, PROTONIX, VITAMIN D I&O's: 3904/4950 Skin: COLOSTOMY IN PLACE EDEMA: PEDAL/ANKLE 3+/PTTING EDEMA; RICARDO HANDS/ARMS GENERAL EDEMA Estimated Nutrition Needs: [id number] KCAL 70-88 G PRO Assessment: CHART REVIEWED AND EVENTS NOTED. PT SEEN FOR ENTERAL NUTRITION SUPPORT FOLLOW-UP. PT ASLEEP AT TIME OF VISIT RECEIVING ALTERNATIVE NUTRITION SUPPORT OF JEVITY 1.5 @ 50 ML/HR X 22 HOURS (PT ON SYNTHROID-HOLD ONE HOUR BEFORE AND ONE HOUR AFTER ADMINISTRATION). PER RN AND CHART, PT TOLERATING EN, NOTING NO ISSUES. PER PUMP HISTORY, PT RECEIVING ~83% ESTIMATED NUTRIENT NEEDS PAST 24 HOURS. FAMILY AT BEDSIDE REPORTED NO DIET QUESTIONS AT THIS TIME. RD TO CONTINUE TO FOLLOW. Dx: INADEQUATE PROTEIN-ENERGY INTAKE R/T PMH AEB PT RECEIVING ENTERAL NUTRITION SUPPORT.-ACTIVE Intervention: 1. ENTERAL NUTRITION SUPPORT Monitoring, Evaluation and Goals: 1. ENTERAL NUTRITION SUPPORT; PROVIDE >80% ESTIMATED NUTRIENT NEEDS X 22 HOURS-ACTIVE 2. WEIGHTS; PROMOTE WEIGHT MAINTENANC-IN PROGRESS 3. LABS; WNL-IN PROGRESS MONITOR: -TF RATE/RESIDUALS -WEIGHTS -LABS [facility] Nutrition Therapy DATE: 08/23/16 Patient: CHADD WILLINGHAM Physician: RAHEEM Address: [facility] Room/Bed: [address], Zip: [place] [address] Admit Date: 08/15/16 Date of : [birth year] Height: 5 7 Weight: 130 59 Recommendations: 1. CONTINUE CURRENT ENTERAL NUTRITION SUPPORT OF JEVITY 1.5 @ 50 ML/HR X 22 HOURS (PT ON SYNTHROID-HOLD ONE HOUR BEFORE AND ONE HOUR AFTER ADMINISTRATION) CONTINUE FREE H20 FLUSHES PER MD 2. CONTINUE TO MONITOR FOR SIGNS OF EN INTOLERANCE RD WILL F/U PER PROTOCOL PT IS MODERATELY COMPROMISED Respectfully, JESS GRIJALVA MS, RD, LD Food and Nutritional Services [facility] cc: client file
--- NOTE | ~2016-08-15 | CR72 ---
[facility] A Service of [facility] & [facility] RADIOLOGY TEXT RESULTS PATIENT: CHADD WILLINGHAM LOCATION: [place] [address] : [birth year] UNIT #: [id number] AGE: [address]: Dominick Erwin MD SEX: M ORDER DR: [id number] [facility] [address] [place], [place] [address] [id number] I MR#: [id number] Acc #: [id number] NAME: CHADD WILLINGHAM : 1970 SEX: M STUDY DATE/TIME: 08/30/2016 5:02 UNIT: [facility] ROOM: [facility] STUDY DESCRIPTION: CR Chest Single View Portable Attending Physician: Dominick Erwin M.D. Ordering Physician: Zaria Mendosa M.D. Primary Care Physician: Naveen Dave Sr., M.D. MEDICAL IMAGING REPORT This report is preliminary unless electronic signature is present EXAM Portable chest INDICATION Respiratory failure follow up. PROCEDURE Frontal view chest. COMPARISON 08/29/2016. FINDINGS ET tube is stable. Stable right pleural effusion. Probable small left effusion. No visible pneumothorax. IMPRESSION Stable. Dictated by... Silver Eng M.D. THIS IS AN ELECTRONICALLY VERIFIED REPORT Silver Eng M.D. at 09/02/2016 7:20 AM JACQUIE/sim TD: 08/30/2016 10:00 JOB #: [id number] MEDICAL IMAGING REPORT Page 1 of 1 COPY
--- NOTE | ~2016-08-15 | CO ---
Unit #: [id number] #: [id number] Patient: CHADD WILLINGHAM [id number] [address] [place], [place] [address] [id number] I MR#: [id number] NAME: CHADD WILLINGHAM ROOM: CIC3 Age: 46 Sex: M Admission Date: 08/15/2016 : 1970 Attending Physician: Dominick Erwin M.D. Primary Care Physician: Naveen Dave Sr., M.D. Consultation Date: 08/29/2016 CONSULTATION REPORT REASON FOR CONSULTATION Antibiotic management in a patient with recurrent pneumonia. HISTORY OF PRESENT ILLNESS This is a 46-year-old male who is currently on the ventilator and pressors. He is unable to provide any history. The patient, however, is severely mentally disabled with a history of cerebral palsy and seizures. The patient lives in a snf. The patient has multiple family members at his bedside, including his father. The patient normally lives and resides in a snf. However, in the beginning of July he was sent to [facility] for aspiration pneumonia. The patient has a known history of aspiration pneumonia. He was treated and returned to the snf in less than 24 hours due to a mucus plus. He was sent back to [facility] and treated again for healthcare associated/aspiration pneumonia and went to [facility]. The patient was there less than 24 hours per the family and had to come to [facility] for pneumonia. While here the patient was treated for Citrobacter pneumonia. He was on the ventilator at that time. However, he was extubated and was getting ready to go back to [place] when he had a bronchoscopy to remove mucus plugs and developed some respiratory distress, fever, and leukocytosis and required Levophed drip. The patient is now in the ICU. He has currently experienced a seizure early this a.m. per the father. He was placed on Zosyn, Levaquin and vancomycin and infectious disease was asked to evaluate. PAST MEDICAL HISTORY As previously stated, 1. Cerebral palsy. 2. Seizure disorder. 3. Multiple episodes of pneumonia. 4. History of dysphagia status post PEG tube. 5. Status post colostomy bag. 6. Anemia. 7. Status post vagal nerve stimulator placement. SOCIAL HISTORY The patient lives in a snf. ALLERGIES No known drug allergies. CURRENT MEDICATIONS 1. Vancomycin. 2. Zosyn. Unit #: [id number] #: [id number] Patient: CHADD WILLINGHAM 3. Levophed. 4. The patient is also on a Levophed drip. For further medications, please refer to the patient's MAR. REVIEW OF SYSTEMS Unable to obtain as the patient is currently on the ventilator. PHYSICAL EXAMINATION GENERAL: This is a no distress male who is currently on the ventilator. VITALS: Temperature 99.3 with a t-max of 102.9, pulse 107, blood pressure 102/55, respiratory rate 15. HEENT: Pupils are sluggish. NECK: Supple. LUNGS: Rhonchi noted right greater than left. HEART: S1 and S2 with tachycardia. ABDOMEN: Hypoactive bowel sounds. Colostomy in place with positive stool. EXTREMITIES: Trace edema and a PICC line in the right upper extremity. DIAGNOSTIC STUDIES IMAGING: A 08/28/2016 chest x-ray, please see full report for complete details. It shows endotracheal tube in satisfactory position, bilateral infiltrates right greater than left. LABORATORY: Creatinine 1.4, BUN 24, sodium 140, potassium 3.7, chloride 108, CO2 24, bilirubin 1.0, AST 44, ALT 16, alkaline phosphatase 84, lactic acid on admission was 1.5. Hemoglobin 8.5, hematocrit 26.3, white blood cell count 29.8 which is increased from 10.7 and platelets 121. Respiratory culture shows gram stain gram negative rods. The 08/28/2016 bronchoscopy shows gram negative rods. Blood cultures are currently pending. A 08/16/2016 bronch showed Citrobacter, sensitive to both meropenem and Zosyn, resistant to Levaquin. ASSESSMENT This is a 46-year-old male with cerebral palsy and seizure disorder, with recurrent healthcare associated and aspiration pneumonia, with multiple rounds of antibiotics. The patient also has a history of recurrent mucus plugs and during bronchoscopy prior to discharge from mucus plug removal he also developed some respiratory distress, fever, leukocytosis and hypotension. The patient now is on the ventilator with pressors and appears to have developing sepsis with relapse of healthcare associated pneumonia. RECOMMENDATIONS At this time would like to adjust antibiotic therapy due to the patient's history of seizure disorder. Will discontinue Levaquin. Will continue vancomycin and Zosyn and give tobramycin times one. This will cover the patient's previous Citrobacter that he had growing on initial presentation at [facility]. Will have the nursing staff call with any positive blood cultures and will check a CBC and CMP in the morning. All questions were answered by the family. This case will be discussed with Dr. Nishant Robles. Thank you for allowing us to participate in the care of this patient. Further recommendations will follow pending the patient's clinical course. Unit #: [id number] #: [id number] Patient: CHADD WILLINGHAM Dictated by... Maria Eugenia Valdez A.P.R.N. SLS/gz TD: 08/29/2016 10:25 JOB #: [id number] CONSULTATION REPORT Page 1 of 1 X X CONSULTATION REPORT
--- NOTE | ~2016-08-15 | CR72 ---
[facility] A Service of [facility] & [facility] RADIOLOGY TEXT RESULTS PATIENT: CHADD WILLINGHAM LOCATION: [place] [id number] : [birth year] UNIT #: [id number] AGE: [address]: Dominick Erwin MD SEX: M ORDER DR: [id number] [facility] [address] [facility]. [place], [place] [address] [id number] I MR#: [id number] Acc #: [id number] NAME: CHADD WILLINGHAM : 1970 SEX: M STUDY DATE/TIME: 08/21/2016 4:23 UNIT: [facility] ROOM: [facility] STUDY DESCRIPTION: CR Chest Single View Portable Attending Physician: Dominick Erwin M.D. Ordering Physician: Zaria Mendosa M.D. Primary Care Physician: Naveen Dave Sr., M.D. MEDICAL IMAGING REPORT This report is preliminary unless electronic signature is present EXAM Single view chest INDICATIONS Shortness of air and pneumonia. FINDINGS Single portable AP view of the chest compared to CT chest dated 08/20/2016. Heart and mediastinal contours are unchanged. There is a right PICC. Large right pleural effusion and elevated right hemidiaphragm are unchanged. There is a small left pleural effusion. No pneumothorax. IMPRESSION No interval change. Dictated by... Peng Garcia M.D. THIS IS AN ELECTRONICALLY VERIFIED REPORT Peng Garcia M.D. at 08/21/2016 11:21 PM NEHEMIAS/brenda TD: 08/21/2016 06:17 JOB #: [id number] MEDICAL IMAGING REPORT Page 1 of 1 COPY
--- NOTE | ~2016-08-15 | CR72 ---
[facility] A Service of [facility] & [facility] RADIOLOGY TEXT RESULTS PATIENT: CHADD WILLINGHAM LOCATION: [address] : [birth year] UNIT #: [id number] AGE: [address]: Dominick Erwin MD SEX: M ORDER DR: [id number] [facility] [address] [facility]. [place], [place] [address] [id number] I MR#: [id number] Acc #: [id number] NAME: CHADD WILLINGHAM : 1970 SEX: M STUDY DATE/TIME: 08/28/2016 15:30 UNIT: [facility] ROOM: [facility] STUDY DESCRIPTION: CR Chest Single View Portable Attending Physician: Dominick Erwin M.D. Ordering Physician: Zaria Mendosa M.D. Primary Care Physician: Naveen Dave Sr., M.D. MEDICAL IMAGING REPORT This report is preliminary unless electronic signature is present EXAM AP portable chest DATE 08/28/2016 HISTORY Gasping for air, recently diagnosed with pneumonia and weakness. Symptoms began 08/15/2016. [place] patient. COMPARISON AP portable chest 08/26/2016. FINDINGS There is improved aeration of the right hemithorax, with partial opacification of the right mid to upper lung zone. There does appear to be an asymmetric elevation of the right hemidiaphragm chcf up the right hemithorax. Patchy right perihilar and right basilar atelectasis or infiltrates are thought to be present. Patchy infiltrates within the infrahilar left lung are thought to be present. Heart size is stable. Question of trace left pleural effusion. No visible pneumothorax. Electronic generator over the left lower chest with lead extending over left lower neck, unchanged. The right arm approach PICC extends to the level of the cavoatrial junction. Severe thoracolumbar junction levoscoliosis. Presumed percutaneous gastrostomy tube is in place. IMPRESSION 1. Compared to the most recent study from 08/26/2016, there is improved aeration and partial re-expansion of the right lung. Patchy infiltrates do remain within the right perihilar region, right base and left infrahilar regions, may represent areas of pneumonia and/or atelectasis. [facility] A Service of [facility] RADIOLOGY TEXT RESULTS PATIENT: CHADD WILLINGHAM LOCATION: CIC3 CICCU3-17 : [birth year] UNIT #: [id number] AGE: [address]: Dominick Erwin MD SEX: M ORDER DR: 2. Moderate asymmetric elevation right hemidiaphragm, not thought to be significantly changed since the CT chest from 08/20/2016. Dictated by... Adrianne Moe M.D. THIS IS AN ELECTRONICALLY VERIFIED REPORT Adrianne Moe M.D. at 08/29/2016 10:05 AM PITO/paco TD: 08/28/2016 23:12 JOB #: [id number] MEDICAL IMAGING REPORT Page 1 of 1 COPY
--- NOTE | ~2016-08-15 | CR72 ---
[facility] A Service of [facility] & [facility] RADIOLOGY TEXT RESULTS PATIENT: CHADD WILLINGHAM LOCATION: [place] [address] : [birth year] UNIT #: [id number] AGE: [address]: Dominick Erwin MD SEX: M ORDER DR: [id number] [facility] [address] [facility]. [place], [place] [address] [id number] I MR#: [id number] Acc #: [id number] NAME: CHADD WILLINGHAM : 1970 SEX: M STUDY DATE/TIME: 08/19/2016 6:30 UNIT: [facility] ROOM: [facility] STUDY DESCRIPTION: CR Chest Single View Portable Attending Physician: Dominick Erwin M.D. Ordering Physician: Zaria Mendosa M.D. Primary Care Physician: Naveen Dave Sr., M.D. MEDICAL IMAGING REPORT This report is preliminary unless electronic signature is present EXAM Portable chest HISTORY Respiratory failure, pneumonia, fever and sepsis for 4 days. FINDINGS AP portable view is obtained. Cardiac size is stable. The patient has a pacing device in place over the left chest wall extending up into the left cervical region. A right-sided PICC line is in place. There is marked scoliosis. There is mild atelectasis at the left base. There is marked elevation of the right hemidiaphragm with a right-sided pleural effusion. The pleural effusion has decreased slightly. CONCLUSION Slight decrease in right-sided pleural fluid. No change in the atelectasis or infiltrate in the left base. Dictated by... Sunny Heredia M.D. THIS IS AN ELECTRONICALLY VERIFIED REPORT Sunny Heredia M.D. at 08/20/2016 5:06 PM REJI/orlando TD: 08/19/2016 07:27 JOB #: [id number] MEDICAL IMAGING REPORT Page 1 of 1 COPY
--- NOTE | ~2016-08-15 | HP ---
Unit #: [id number] #: [id number] Patient: CHADD JIMENES [id number] [place] [address] [facility]. [place], [place] [address] [id number] I MR#: [id number] NAME: CHADD JIMENES ROOM: [facility] Age: 46 Sex: M Admission Date: 08/15/2016 : 1970 Attending Physician: Dominick Erwin M.D. Primary Care Physician: Naveen Dave Sr., M.D. HISTORY AND PHYSICAL ADMISSION DIAGNOSES 1. Acute hypoxemic respiratory failure. 2. Healthcare-acquired pneumonia. 3. Sepsis. 4. History of cerebral palsy. 5. History of seizure disorder, status post vagal nerve stimulator. 6. Dysphagia, status post percutaneous endoscopic gastrostomy tube. 7. Status post colostomy bag. 8. Anemia of chronic disease. HISTORY OF PRESENT ILLNESS Mr. Jimenes is a 46-year-old gentleman, a resident of a senior care at [facility], who apparently was in the hospital at the [facility], was discharged and today got into the respiratory distress with some fevers, chills, brought to the [facility] where initial evaluation was suspicious was pneumonia which likely is a healthcare-acquired pneumonia. The patient was started on the antibiotics and admitted. Patient also was found with the acute hypoxemic respiratory failure requiring intubation. He was found septic with the hypertension and currently on the Levophed, admitted to ICU. The patient is the one with the history of cerebral palsy, is nonverbal, currently intubated. There is no family member at the room so all the history is obtained through the ER chart and nursing staff from the ICU. Again, secondary to above I am not able to obtain any further history, neither am I able to obtain any review of systems. PAST MEDICAL HISTORY Past medical history is significant for: 1. Cerebral palsy. 2. Seizure disorder. 3. Dysphagia. PAST SURGICAL HISTORY Past surgical history is significant for: 1. PEG tube placement. 2. Colostomy. 3. Vagal nerve stimulator. HOME MEDICATIONS Home medications include Synthroid, Combivent, Pataday, Flovent, nasal spray, Nexium, Onfi, phenobarbital, sennosides, Klonopin, Mylicon, Lamictal, Keppra, valproic acid, vitamin D. Unit #: [id number] #: [id number] Patient: CHADD JIMENES ALLERGIES No known drug allergies. SOCIAL HISTORY Again, lives at the senior care at [facility]. FAMILY HISTORY Unremarkable. PHYSICAL EXAMINATION GENERAL: On the physical exam patient is a 46-year-old gentleman who is intubated, on mechanical ventilation. VITAL SIGNS: BP 91/50, heart rate 87, respirations 17, temperature 100.3. HEENT: Head is atraumatic. Pupils equal, round and reactive to light and accommodation. Orally intubated. NECK: Supple. No mass. No JVD. No bruits. CHEST: Diminished bilaterally. CARDIOVASCULAR EXAM: S1, S2. No murmurs. ABDOMEN: Abdomen is soft, plus PEG in place, plus colostomy in the right upper quadrant. EXTREMITIES: Lower extremities with the pitting edema and contractures. NEUROLOGIC: Neurological exam unobtainable. DIAGNOSTIC STUDIES IMAGING: Chest x-ray positive for pneumonia. LABORATORY: White count of 14,000 and hemoglobin and hematocrit 10.8 and 32.2. Set of cardiac enzymes negative. Blood gas: pH 7.425, pCO2 42.5. ASSESSMENT AND PLAN 1. Acute respiratory failure: Continue vent management per pulmonary. Continue bronchodilators. 2. Healthcare-acquired pneumonia: Started on the triple antibiotic coverage. Defer to Pulmonary, Dr. Mendosa following. 3. Sepsis: Follow up on (1) cultures, continue antibiotics, continue hemodynamic support, currently on the Levophed. 4. History of cerebral palsy. 5. History of seizure disorder: Continue home med. Status post vagal nerve stimulator. 6. Anemia of chronic disease as above, stable. 7. Dysphagia, status post PEG. 8. GI and DVT prophylaxis: Continue SCDs and Protonix. Dictated by Alea Rivera/chyna TD: 08/15/2016 21:57 JOB #: [id number] Unit #: [id number] #: [id number] Patient: CHADD JIMENES HISTORY AND PHYSICAL Page 1 of 1 X Ze Scott MD HISTORY AND PHYSICAL
--- NOTE | ~2016-08-15 | CR72 ---
[facility] A Service of [facility] RADIOLOGY TEXT RESULTS PATIENT: CHADD WILLINGHAM LOCATION: [place] [address] : [birth year] UNIT #: [id number] AGE: [address]: Dominick Erwin MD SEX: M ORDER DR: [id number] [place] [id number] [facility]. [place], [place] [address] [id number] I MR#: [id number] Acc #: [id number] NAME: CHADD WILLINGHAM : 1970 SEX: M STUDY DATE/TIME: 08/18/2016 5:20 UNIT: [facility] ROOM: [facility] STUDY DESCRIPTION: CR Chest Single View Portable Attending Physician: Dominick Erwin M.D. Ordering Physician: Zaria Mendosa M.D. Primary Care Physician: Naveen Dave Sr., M.D. MEDICAL IMAGING REPORT This report is preliminary unless electronic signature is present EXAM Portable chest, 08/18/2016. HISTORY Respiratory failure for 3 days. Shortness of breath. COMPARISON Chest, 08/16/2016. FINDINGS Frontal chest demonstrates removal of the endotracheal tube. Right PICC line is stable. No visible pneumothorax. There is again noted elevation of the right hemidiaphragm. Probable right pleural effusion. Atelectasis/infiltrate in the aerated portion of the right lung. Mild left basilar atelectasis. Heart size and mediastinum are stable. Left sided vagal stimulator. IMPRESSION 1. Removal of endotracheal tube. Stable right PICC line. No visible pneumothorax. 2. Persistent elevation of the right hemidiaphragm with suspected right pleural effusion and atelectasis/infiltrate in the aerated portion of the right lung. Dictated by... Kristian Parra M.D. THIS IS AN ELECTRONICALLY VERIFIED REPORT Kristian Parra M.D. at 08/19/2016 8:52 AM TAMARA/bharat [facility] A Service of [facility] RADIOLOGY TEXT RESULTS PATIENT: CHADD WILLINGHAM [address] : [birth year] UNIT #: [id number] AGE: [address]: Dominick Erwin MD SEX: M ORDER DR: TD: 08/18/2016 07:30 JOB #: [id number] MEDICAL IMAGING REPORT Page 1 of 1 COPY
--- NOTE | ~2016-08-15 | CR72 ---
[facility] A Service of [facility] & [facility] RADIOLOGY TEXT RESULTS PATIENT: CHADD WILLINGHAM LOCATION: [place] [address] : [birth year] UNIT #: [id number] AGE: [address]: Dominick Erwin MD SEX: M ORDER DR: [id number] [facility] [address] [facility]. [place], [place] [address] [id number] I MR#: [id number] Acc #: [id number] NAME: CHADD WILLINGHAM : 1970 SEX: M STUDY DATE/TIME: 08/29/2016 5:40 UNIT: [facility] ROOM: [facility] STUDY DESCRIPTION: CR Chest Single View Portable Attending Physician: Dominick Erwin M.D. Ordering Physician: Zaria Mendosa M.D. Primary Care Physician: Naveen Dave Sr., M.D. MEDICAL IMAGING REPORT This report is preliminary unless electronic signature is present EXAM Portable chest, 08/29. INDICATION Shortness of air. Respiratory failure. FINDINGS AP portable chest is compared with 08/28/2016 at 2105 hours. ET tube and right arm PICC are in good position. There is increased infiltrate at the left base. There is chronic elevation of the right hemidiaphragm. Marked increase in opacity in the right hemithorax, particularly near the apex is noted. At least some of this may be due to right upper lobe atelectasis. Short-interval followup is recommended. Consider chest CT if needed. Dictated by... John Robison Jr., M.D. THIS IS AN ELECTRONICALLY VERIFIED REPORT John Robison Jr., M.D. at 08/30/2016 6:06 AM ANGEL/bharat TD: 08/29/2016 10:38 JOB #: [id number] MEDICAL IMAGING REPORT Page 1 of 1 COPY
--- NOTE | ~2016-08-15 | FU ---
[facility] Nutrition Therapy DATE: 09/02/16 Patient: CHADD WILLINGHAM Physician: RAHEEM Address: [facility] Room/Bed: [address], Zip: [place] [address] Admit Date: 08/15/16 Date of : [birth year] Height: 5 7 Weight: 149 68 NUTRITION MONITORING/FOLLOW-UP: Reason: SEEING PT FOR ENTERAL NUTRITION FOLLOW UP. Anthropometrics: 5'7", WT: 149#, BMI: 23 (ADMIT WEIGHT 130#) Labs: CREAT 0.4 CA++ 6.2 ALB 1.5 Meds: PROPOFOL (OFF AT TIME OF VISIT), VERSED, LOVENOX, PRO-AMATINE, NACL, SYNTHROID, D5% I&O's: 9716/6271 Skin: WNL. EDEMA: BLE 1+, FEET 2+, BUE GENERAL Estimated Nutrition Needs: [phone] KCAL 70-88 G PRO Assessment: CHART REVIEWED, EVENTS NOTED. PT SEEN FOR ENTERAL NUTRITION FOLLOW UP. PT CONTINUES TO BE INTUBATED AND SEDATED AT TIME OF VISIT. RD VISITED PT AT BEDSIDE AND SPOKE TO FAMILY. PT RECEIVING ENTERAL NUTRITION SUPPORT OF JEVITY 1.5 @ 55 ML/HR X 22 HOURS (PT ON SYNTRHOID-HOLD FOR ONE HOUR BEFORE AND ONE HOUR AFTER ADMINISTRATION). PER RN, PT IS TOLERATING TUBE FEEDS, NO ISSUES. RN REPORTED ATTEMPTING TO WEAN PT OFF OF VENTILATION OVER THE WEEKEND. RD TO CONTINUE TO FOLLOW. Dx: INADEQUATE ENTERAL NUTRITION INFUSION R/T BRONCHOSCOPY AEB NPO STATUS. -RESOLVED NEW DX: INADEQUATE ENTERAL NUTRITION INFUSION R/T ENTERAL NUTRITION NOT AT GOAL AEB PT RECEIVING 65% OF GOAL VOLUME PER PUMP HISTORY PAST 24 HOURS. Intervention: 1. ENTERAL NUTRITION SUPPORT JEVITY 1.5 @ 55 ML/HR X 22 HOURS. Monitoring, Evaluation and Goals: 1. ENTERAL NUTRITION SUPPORT; PROVIDE >80% ESTIMATED NUTRIENT NEEDS AT GOAL X 22 HOURS-NOT MET/IN PROGRESS 2. WEIGHTS; PROMOTE WEIGHT MAINTAINENCE- IN PROGRESS 3. LABS; WNL- IN PROGRESS MONITOR: -ENTERAL NUTRITION (RN REPORTED ATTEMPTING TO WEAN PT OFF OF THE VENTILATOR) -WEIGHTS -LABS [facility] Nutrition Therapy DATE: 09/02/16 Patient: CHADD WILLINGHAM Physician: RAHEEM Address: [facility] Room/Bed: [address], Zip: [place] [address] Admit Date: 08/15/16 Date of : [birth year] Height: 5 7 Weight: 149 68 Recommendations: 1. CONTINUE ENTERAL NUTRITION SUPPORT AT GOAL RATE OF JEVITY 1.5 @ 50 ML/HR X 22 HOURS TO REACH GOAL VOLUME -PROVIDES 1650 KCAL, 70 G PRO, 836 ML FREE H20 CONTINUE FREE H20 FLUSHES PER MD OR 210 ML QID TO MEET PT'S CURRENT ESTIMATED FLUID NEEDS OR MANAGE PER MD. 2. CONTINUTE TO MONITOR FOR SIGNS OF INTOLERANCE OF ENTERAL NUTRITION SUPPORTS 3. MONITOR WEIGHT STATUS, OF NOTE PT'S WEIGHTS HAVE INCREASED. RD WILL F/U PER PROTOCOL PATIENT IS MILD/MODERATELY COMPROMISED. Respectfully, TEMITOPE PEÑA, MOBILE MECHANIC JESS GRIJALVA MS, RD, LD [employer] and Nutritional Services [facility] cc: client file
--- NOTE | ~2016-08-15 | CR72 ---
[facility] A Service of [facility] & [facility] RADIOLOGY TEXT RESULTS PATIENT: CHADD WILLINGHAM LOCATION: [place] [address] : [birth year] UNIT #: [id number] AGE: [address]: Dominick Erwin MD SEX: M ORDER DR: [id number] [facility] [address] [facility]. [place], [place] [address] [id number] I MR#: [id number] Acc #: [id number] NAME: CHADD WILLINGHAM : 1970 SEX: M STUDY DATE/TIME: 08/22/2016 3:32 UNIT: [facility] ROOM: [facility] STUDY DESCRIPTION: CR Chest Single View Portable Attending Physician: Dominick Erwin M.D. Ordering Physician: Zaria Mendosa M.D. Primary Care Physician: Naveen Dave Sr., M.D. MEDICAL IMAGING REPORT This report is preliminary unless electronic signature is present EXAM Single view chest INDICATION Respiratory failure. Pneumonia. FINDINGS Single portable AP view of the chest compared to 08/21/2016. Right PICC remains in place. Heart and mediastinal contours are unchanged. Large right pleural effusion and small left effusion are similar to the prior study. There is associated airspace opacities. No pneumothorax. IMPRESSION No interval change. Dictated by... Peng Garcia M.D. THIS IS AN ELECTRONICALLY VERIFIED REPORT Peng Garcia M.D. at 08/22/2016 4:43 AM NEHEMIAS/jay TD: 08/22/2016 04:37 JOB #: [id number] MEDICAL IMAGING REPORT Page 1 of 1 COPY
--- NOTE | ~2016-08-15 | EKG ---
PATIENT: CHADD WILLINGHAM UNIT #: [id number] Ventricular Rate: 51 BPM Atrial Rate: 102 BPM P-R Interval: 126 ms QRS Duration: 84 ms Q-T Interval: 436 ms QTC Calculation(Bezet): 401 ms P [place]: 49 degrees Calculated R [place]: 24 degrees Calculated T [place]: -38 degrees Diagnosis Line: Sinus bradycardia Diagnosis Line: Abnormal QRS-T angle, consider primary T wave Diagnosis Line: abnormality Diagnosis Line: Long QTc Diagnosis Line: Abnormal ECG Diagnosis Line: When compared with ECG of 15-AUG-2016 04:46, Diagnosis Line: Sinus rhythm is now with 2nd degree A-V block Diagnosis Line: Vent. rate has decreased BY 32 BPM Diagnosis Line: T wave inversion now evident in Inferior leads Diagnosis Line: Confirmed by ANA CHARLTON MD ([id number]) on 09/05/2016 Diagnosis Line: 6:49:44 PM INTERPRETING MD: LATESHA PHIPPS
--- NOTE | ~2016-08-15 | CR72 ---
[facility]. [facility] A Service of [facility] & [facility] RADIOLOGY TEXT RESULTS PATIENT: CHADD WILLINGHAM LOCATION: [address] : [birth year] UNIT #: [id number] AGE: [address]: Dominick Erwin MD SEX: M ORDER DR: [id number] [facility] [address] [facility]. [place], [place] [address] [id number] I MR#: [id number] Acc #: [id number] NAME: CHADD WILLINGHAM : 1970 SEX: M STUDY DATE/TIME: 08/25/2016 12:27 UNIT: [facility] ROOM: [facility] STUDY DESCRIPTION: CR Chest Single View Portable Attending Physician: Dominick Erwin M.D. Ordering Physician: Zaria Mendosa M.D. Primary Care Physician: Naveen Dave Sr., M.D. MEDICAL IMAGING REPORT This report is preliminary unless electronic signature is present EXAM Portable AP view of the chest COMPARISON August 24, 2016; August 23, 2016 and August 22, 2016. INDICATION 46-year-old male with cough and chest congestion since August 16, 2011. Chronic pneumonia. FINDINGS Right upper extremity PICC terminates in the lower SVC, grossly stable. Left chest vagal nerve stimulator is noted, grossly adequately positioned. Opacities are slightly improved in the right lung base, likely with associated small pleural effusion. Hazy attenuation in the left lung base is grossly stable, likely with an associated small pleural effusion. No evidence of pneumothorax. Cardiomediastinal silhouette is grossly stable but not well evaluated due to scoliosis and patient rotation. IMPRESSION 1. As compared to yesterday there is slightly improved right basilar opacities representing a combination of atelectasis or pneumonia, there is also likely a small right pleural effusion. 2. Grossly stable left basilar atelectasis and/or pneumonia with stable small left pleural effusion. 3. Slightly nodular appearing opacity in the left lung base, likely infectious or inflammatory. Imaging followup is recommended to ensure resolution. Dictated by... Lucio Mendez M.D. THIS IS AN ELECTRONICALLY VERIFIED REPORT [facility] A Service of [facility] & [facility] RADIOLOGY TEXT RESULTS PATIENT: CHADD WILLINGHAM LOCATION: [facility]3-17 : [birth year] UNIT #: [id number] AGE: [address]: Dominick Erwin MD SEX: M ORDER DR: Lucio Mendez M.D. at 09/01/2016 1:34 PM [place] TD: 08/25/2016 13:15 JOB #: [id number] MEDICAL IMAGING REPORT Page 1 of 1 COPY
--- NOTE | ~2016-08-15 | CR72 ---
[facility] A Service of [facility] & [facility] RADIOLOGY TEXT RESULTS PATIENT: CHADD WILLINGHAM LOCATION: [place] [id number] : [birth year] UNIT #: [id number] AGE: [address]: Dominick Erwin MD SEX: M ORDER DR: [id number] [facility] [address] [facility]. [place], [place] [address] [id number] I MR#: [id number] Acc #: [id number] NAME: CHADD WILLINGHAM : 1970 SEX: M STUDY DATE/TIME: 08/28/2016 17:53 UNIT: [facility] ROOM: [facility] STUDY DESCRIPTION: CR Chest Single View Portable Attending Physician: Dominick Erwin M.D. Ordering Physician: Zaria Mendosa M.D. Primary Care Physician: Naveen Dave Sr., M.D. MEDICAL IMAGING REPORT This report is preliminary unless electronic signature is present EXAM AP portable chest date 08/28/2016 at 17:53 HISTORY Follow up pneumonia, shortness of breath and weakness. Symptoms began 08/15/2016. COMPARISON AP portable chest 08/28/2016 at 15:30. FINDINGS Ill-defined infiltrates within the right [id number] lung zone, with band-like atelectatic change in the right lower lobe, without significant change. There may be minimal infiltrate in the infrahilar left lung, partially obscured by the electronic generator device. Stable asymmetric elevation of right hemidiaphragm. Questionable small right pleural effusion. Heart size is stable. There is upper lumbar scoliotic curvature toward the left. The right arm-approach PICC remains at the cavoatrial junction and no pneumothorax is seen. IMPRESSION 1. Ill-defined right lung infiltrates. Questionable left infrahilar infiltrates obscured by electronic generator device. Band-like atelectatic type change in the right lower lobe. 2. Stable asymmetric elevation of right hemidiaphragm. 3. No significant change compared to the study performed earlier today, 08/28/2016 at 15:30. Dictated by... Adrianne Moe M.D. THIS IS AN ELECTRONICALLY VERIFIED REPORT [facility] A Service of [facility] & [facility] RADIOLOGY TEXT RESULTS PATIENT: CHADD WILLINGHAM LOCATION: [address] : [birth year] UNIT #: [id number] AGE: [address]: Dominick Erwin MD SEX: M ORDER DR: Adrianne Moe M.D. at 08/29/2016 10:05 AM PITO/concepcion TD: 08/29/2016 03:30 JOB #: [id number] MEDICAL IMAGING REPORT Page 1 of 1 COPY
--- NOTE | ~2016-08-15 | FU ---
[facility] Nutrition Therapy DATE: 09/06/16 Patient: CHADD WILLINGHAM Physician: RAHEEM Address: [facility] Room/Bed: [address], Zip: [place] [address] Admit Date: 08/15/16 Date of : [birth year] Height: 5 7 Weight: 149 68 NUTRITION MONITORING/FOLLOW-UP: Reason: PT SEEN FOR FOLLOW-UP/ENTERAL NUTRITION SUPPORT DX: SOA, RESP FAILURE Anthropometrics: 5'7", WT: 149# (68 KG), BMI: 23.3 -ADMIT WEIGHT: 136# Labs: K+:2.8, BUN: 24, CREAT: 0.5, CA+:7.0, ALB: 1.8 Meds: NACL, PROPOFOL, VERSED, KCL, SENOKOT, FENTANYL, SYNTHROID (G-TUBE), PROTONIX I&O's: 1712/1421 Skin: NO ISSUES EDEMA: BLE 2+ EDEMA; RICARDO FEET 3+ EDEMA; BUE GENERALIZED EDEMA Estimated Nutrition Needs: [phone] KCAL 70-88 G PRO Assessment: CHART REVIEWED AND EVENTS NOTED. PT SEEN FOR ENTERAL NUTRITION SUPPORT FOLLOW-UP. PT CONTINUES TO BE INTUBATED AND SEDATED (PROPOFOL AT RATE OF 4 ML/HR PROVIDING ~106 KCAL FROM LIPIDS) AT TIME OF VISIT RECEIVING ALTERNATIVE NUTRITION SUPPORT OF JEVITY 1.5 @ 50 ML/HR X 22 HOURS (PT ON SYNTHROID-HOLD ONE HOUR BEFORE AND ONE HOUR AFTER ADMINISTRATION). PER PUMP HISTORY, PT RECEIVING ~94% TOTAL GOAL VOLUME PAST 24 HOURS. FAMILY IN ROOM REPORTED NO DIET QUESTIONS AT THIS TIME. PER RN AND CHART, ?TERMINALLY EXTUBATING PT ON 09/09/16 (IN 3 DA[address] RD TO REMAIN AVAILABLE. -EN PROVIDES 1650 KCAL, 70 G PRO, 836 ML FREE H20 Dx: INADEQUATE NUTRIENT SUPPORT INFUSION R/T ENTERAL NUTRITION NOT AT GOAL AEB ~65% ESTIMATED GOAL VOLUME PAST 24 HOURS.-RESOLVED NEW DX: INADEQUATE ORAL INTAKE R/T PMH AEB PT RECEIVING ENTERAL NUTRITION SUPPORT, PT RECEIVING ~94% VOLUME PAST 24 HOURS. Intervention: 1. ENTERAL NUTRITION SUPPORT Monitoring, Evaluation and Goals: 1. ENTERAL NUTRITION; PROVIDE >80% ESTIMATED NUTRIENT NEEDS AT GOAL X 24 HOURS 2. WEIGHTS; PROMOTE WEIGHT MAINTENANCE-IN PROGRESS/ACTIVE 3. LABS; WNL-IN PROGRESS/ACTIVE [facility] Nutrition Therapy DATE: 09/06/16 Patient: CHADD ROCK TARSHA Physician: RAHEEM Address: [facility] Room/Bed: [address], Zip: [place] [address] Admit Date: 08/15/16 Date of : [birth year] Height: 5 7 Weight: 149 68 MONITOR: -TF RATE/RESIDUALS -WEIGHTS -PLANS POST-EXTUBATION -LABS Recommendations: 1. CONTINUE CURRENT ENTERAL NUTRITION SUPPORT OF JEVITY 1.5 @ 50 ML/HR X 22 HOURS -ADEQUATE FOR PT'S CURRENT ESTIMATED NEEDS CONTINUE FREE H20 FLUSHES PER MD RD WILL F/U PER PROTOCOL PT IS MODERATELY COMPROMISED Respectfully, JESS GRIJALVA MS, RD, LD Food and Nutritional Services [facility] cc: client file
--- NOTE | ~2016-08-15 | A ---
[facility] Nutrition Therapy DATE: 08/15/16 Patient: CHADD WILLINGHAM Physician: RAHEEM Address: [facility] Room/Bed: [address], Zip: [place] [address] Admit Date: 08/15/16 Date of : [birth year] Height: 5 7 Weight: 137 62.5 NUTRITIONAL ASSESSMENT: REASON: NO DIET ORDER IN ICU, PT INTUBATED PT IS 46 Y.O. MALE ADMITTED FOR ACUTE RESPIRATORY FAILURE PMH: NO RECENT H&P IN [facility]. PER CHART/PAST NOTES: CEREBRAL PALSY, PEG PLACEMENT, SEIZURES, CONSTIPATION, HYPOTHYROIDISM, HIATAL HERNIA, COPD, KRISTA-GESTAUT SYNDROME Anthropometrics: 62 INCHES PER RESIDENTIAL, WT: 130# (PER FAMILY IN ROOM) (59 KG), BMI: 23.8, 110%IBW Labs: CREAT: 0.5, ALB: 2.6, AST: 51, NA+:132 Meds: SENOKOT, SYNTHROID (GTUBE), VERSED, VITAMIN D, PROTONIX, NACL, D5% I/O & Bowel function: NOT AVAILABLE AT THIS TIME Skin Integrity: PEG TUBE IN PLACE EDEMA: BUE 1+ EDEMA; BLE 1+ EDEMA Estimated Nutrition Needs: 6399-6222 KCAL (25-30 KCAL/KG BW) 70-88 G PRO (1.2-1.5 G PRO/KG BW) FLUIDS CONSISTENT W/KCAL NEEDS OR MANAGE PER MD Assessment: CHART REVIEWED AND EVENTS NOTED. PT SEEN FOR NO DIET ORDER IN ICU ASSESSMENT. PT CURRENTLY INTUBATED AND SEDATED AT TIME OF VISIT 2' DX. OF NOTE, PT NON-VERBAL, ADMIT FROM RESIDENTIAL. RD SPOKE TO FAMILY. FAMILY REPORTED NO DIET QUESTIONS AT THIS TIME. PER FAMILY AND RESIDENTIAL NOTES, PT RECEIVES ENTERAL NUTRITION BOLUS FEEDS JEVITY 1.5/3 CANS DAILY (1/2 CAN @ 0700, 1 CAN @ 1100 & 1800, 1/2 CAN @ 1500). RD TO FOLLOW. SEE RECOMMENDATIONS BELOW. Dx: INADEQUATE ORAL INTAKE R/T PMH AEB PEG TUBE IN PLACE, CURRENTLY NPO. Intervention: 1. NO DIET ORDER 2. PEG IN PLACE Monitoring, Evaluation and Goals: 1. ENTERAL NUTRITION; PROVIDE ~80-100% ESTIMATED NUTRIENT NEEDS AT GOAL RATE 2. LABS; WNL 3. WEIGHTS; PROMOTE WEIGHT MAINTENANCE MONITOR: [facility] Nutrition Therapy DATE: 08/15/16 Patient: CHADD WILLINGHAM Physician: RAHEEM Address: [facility] Room/Bed: [address], Zip: [place] [address] Admit Date: 08/15/16 Date of : [birth year] Height: 5 7 Weight: 137 62.5 -PLANS FOR SUPPORT -WEIGHTS -EXTUBATION Recommendations: 1. ONCE MEDICALLY FEASIBLE, BEGIN ALTERNATIVE NUTRITION SUPPORT OF JEVITY 1.5 @ 20 ML/HR, ADVANCE 10 ML q 8 HOURS TO GOAL RATE OF 50 ML/HR X 22 HOURS (PT ON SYNTHROID-HOLD ONE HOUR BEFORE AND ONE HOUR AFTER ADMINISTRATION) -PROVIDES 1650 KCAL, 70 G PRO, 836 ML FREE H20 ADD FREE H20 FLUSHES OF 210 ML QID TO MEET PT'S CURRENT ESTIMATED FLUID NEEDS OR MANAGE PER MD 2. MONITOR FOR SIGNS OF INTOLERANCE OF ENTERAL NUTRITION SUPPORT RD WILL F/U PER PROTOCOL PT IS SEVERELY COMPROMISED Respectfully, JESS GRIJALVA MS, RD, LD Food and Nutritional Services [facility] cc: client file
--- NOTE | ~2016-08-15 | CR72 ---
[facility] A Service of [facility] & [facility] RADIOLOGY TEXT RESULTS PATIENT: CHADD WILLINGHAM LOCATION: [place] [address] : [birth year] UNIT #: [id number] AGE: [address]: Dominick Erwin MD SEX: M ORDER DR: [id number] [facility] [address] [facility]. [place], [place] [address] [id number] I MR#: [id number] Acc #: [id number] NAME: CHADD WILLINGHAM : 1970 SEX: M STUDY DATE/TIME: 08/24/2016 2:20 UNIT: [facility] ROOM: [facility] STUDY DESCRIPTION: CR Chest Single View Portable Attending Physician: Dominick Erwin M.D. Ordering Physician: Zaria Menodsa M.D. Primary Care Physician: Naveen Dave Sr., M.D. MEDICAL IMAGING REPORT This report is preliminary unless electronic signature is present EXAM Portable chest INDICATION Shortness of air today. PROCEDURE Frontal view chest COMPARISON 08/23/2016 FINDINGS The heart size unchanged. Persistent low lung volumes and right basilar opacity. No visible pneumothorax. IMPRESSION Stable. Dictated by... Silver Eng M.D. THIS IS AN ELECTRONICALLY VERIFIED REPORT Silver Eng M.D. at 08/24/2016 9:57 PM Sneha TD: 08/24/2016 09:54 JOB #: [id number] MEDICAL IMAGING REPORT Page 1 of 1 COPY
--- NOTE | ~2016-08-15 | CR72 ---
[facility] A Service of [facility] & [facility] RADIOLOGY TEXT RESULTS PATIENT: CHADD WILLINGHAM LOCATION: [place] [address] : [birth year] UNIT #: [id number] AGE: [address]: Dominick Erwin MD SEX: M ORDER DR: [id number] [facility] [address] [facility]. [place], [place] [address] [id number] I MR#: [id number] Acc #: [id number] NAME: CHADD WILLINGHAM : 1970 SEX: M STUDY DATE/TIME: 08/31/2016 6:06 UNIT: [facility] ROOM: [facility] STUDY DESCRIPTION: CR Chest Single View Portable Attending Physician: Dominick Erwin M.D. Ordering Physician: Zaria Mendosa M.D. Primary Care Physician: Naveen Dave Sr., M.D. MEDICAL IMAGING REPORT This report is preliminary unless electronic signature is present EXAM Portable chest HISTORY Shortness of air. Pneumonia. Follow up endotracheal tube. COMPARISON STUDIES Today's portable view of the chest compared to yesterday's study. FINDINGS PIC catheter and endotracheal tube remain in good position. There is an electronic stimulator on the left with wire extending up into the neck. There appears to be a moderate right effusion with right lower lobe atelectasis and there is mild left lower lobe atelectasis or infiltrate. There are low lung volumes. There has been no change. Dictated by... Bobby Mederos M.D. THIS IS AN ELECTRONICALLY VERIFIED REPORT Bobby Mederos M.D. at 08/31/2016 2:56 PM FEL/pcl TD: 08/31/2016 14:53 JOB #: [id number] MEDICAL IMAGING REPORT Page 1 of 1 COPY
--- NOTE | ~2016-08-15 | CR72 ---
[facility] A Service of [facility] & [facility] RADIOLOGY TEXT RESULTS PATIENT: CHADD WILLINGHAM LOCATION: [place] [address] : [birth year] UNIT #: [id number] AGE: [address]: Dominick Erwin MD SEX: M ORDER DR: [id number] [facility] [address]. [place], [place] [address] [id number] I MR#: [id number] Acc #: [id number] NAME: CHADD WILLINGHAM : 1970 SEX: M STUDY DATE/TIME: 09/08/2016 4:17 UNIT: [facility] ROOM: [facility] STUDY DESCRIPTION: CR Chest Single View Portable Attending Physician: Dominick Erwin M.D. Ordering Physician: Zaria Mendosa M.D. Primary Care Physician: Naveen Dave Sr., M.D. MEDICAL IMAGING REPORT This report is preliminary unless electronic signature is present EXAM Portable chest HISTORY Respiratory failure, fever, follow up endotracheal tube TECHNIQUE/COMPARISON Today's portable view of the chest is compared with yesterday's study. FINDINGS There are very low lung volumes with dense bilateral infiltrates. The endotracheal tube has its tip 1.5 cm above the fiona and there has been no change. Dictated by... Bobby Mederos M.D. THIS IS AN ELECTRONICALLY VERIFIED REPORT Bobby Mederos M.D. at 09/08/2016 1:53 PM FEL/to TD: 09/08/2016 12:24 JOB #: [id number] MEDICAL IMAGING REPORT Page 1 of 1 COPY
--- NOTE | ~2016-08-15 | DS ---
Unit #: [id number] #: [id number] Patient: CHADD JIMENES [id number] [address] [address] [id number] I MR#: [id number] NAME: CHADD JIMENES ROOM: 341 Age: 46 Sex: M Admission Date: 08/15/2016 : 1970 Discharge Date: Attending Physician: Dominick Erwin M.D. Primary Care Physician: Naveen Dave Sr., M.D. DISCHARGE SUMMARY CONSULTANTS 1. Admitting physician Dr. Ze Scott. 2. Neurologist, Dr. Tino Hopper. 3. Enterprise Application Administrator, Dr. Mendosa. FINAL DIAGNOSES 1. Acute hypoxic respiratory failure. 2. Chronic aspiration. 3. Healthcare facility acquired pneumonia, status post antibiotic completion. 4. Sepsis resolved. 5. Mucous plug. 6. History of cerebral palsy. 7. Seizure disorder. 8. Dysphagia, status post percutaneous endoscopic gastrostomy tube. 9. Status post colostomy. 10. Anemia of chronic disease. DISCHARGE MEDICATIONS Please note, the patient has completed a course of IV antibiotics. 1. Senokot 7.2 mg Friday, Friday and Friday. 2. Patanol 2 drops o.u. daily. 3. Klonopin 0.5 mg t.i.d. 4. Phenobarbital 64.8 mg at bedtime. 5. Robinul 2 mg to PEG t.i.d. 6. Mylicon 120 mg t.i.d. 7. Valproic acid 375 mg b.i.d. 8. Keppra continue home dose. 9. Lamictal 300 mg b.i.d. 10. Clobazam 20 mg at bedtime. 11. Flonase nasal spray daily. 12. Mini-Neb treatment q.i.d. DIAGNOSTIC DATA LABORATORY: On discharge, BMP shows sodium 137, potassium 5.0, chloride 98, BUN 13, creatinine 0.5, (1)____1.9__, ___2.0. White blood cell count 10.7, hemoglobin 9.6, hematocrit 29., platelets 295. IMAGING: Please note the patient had multiple chest x-rays done during hospitalization. CT scan of the chest on 08/20/2016 showed complete atelectasis of the bilateral lower lobes. Mild atelectasis in the bilateral posterior upper lobes. Moderate focal subsegmental infiltrate in the central left upper Unit #: [id number] #: [id number] Patient: CHADD JIMENES lobe is only partly visualized. Most recent chest x-ray was done on 08/26/2016, which showed interval complete whiteout of the right hemithorax with shift of the mediastinum to the right most likely reflecting atelectasis suspected to be due to mucous plugging. HOSPITAL COURSE Mr. Jimenes is a 46-year-old male who has multiple medical problems. He is a resident of [facility]. He came with acute hypoxic respiratory failure with healthcare acquired pneumonia and sepsis. The patient was admitted to the hospital. The patient has had a lengthy stay because of chronic aspiration and lots of secretions. The patient is DNR per parents. The patient was treated with broad spectrum IV antibiotics and was seen by footwear production machine operator, Dr. Mendosa, during hospitalization. In the beginning of the stay the patient was in the ICU and was on Levophed for hypertension, which is resolved. The patient was also intubated on initial presentation. The patient will need ongoing assist with aspiration precaution and also for pulmonary rehab. The patient will need frequent suctioning also. The patient's family is very much aware. I have discussed with them about [place] transfer, but they have refused and would like to go back to [facility]. They are aware of the patient's poor condition. I discussed with Dr. Mendosa about the patient's care and the patient would need again bronch done for possible removal of the mucous plug. I discussed with the patient's father, who would like to get that done before discharge. The patient's discharge is being held at this time. Dictated by... Alea Manning TD: 08/27/2016 13:56 JOB #: [id number] DISCHARGE SUMMARY Page 1 of 1 X Izzy Metz MD X DISCHARGE SUMMARY
--- NOTE | ~2016-08-15 | FU ---
[facility] Nutrition Therapy DATE: 08/19/16 Patient: CHADD WILLINGHAM Physician: RAHEEM Address: [facility] Room/Bed: [address], Zip: [place] [address] Admit Date: 08/15/16 Date of : [birth year] Height: 5 7 Weight: 133 60.7 NUTRITION MONITORING/FOLLOW-UP: Reason: PT SEEN FOR ENTERAL NUTRITION SUPPORT FOLLOW-UP DX: SOA, ACUTE RESPIRATORY FAILURE Anthropometrics: 5'7", WT: 133# (60 KG), BMI: 20.8 -WEIGHTS HAVE BEEN STABLE SINCE ADMIT (130#-ADMIT-137#) Labs: BUN: 6, CREAT: 0.5, CA+:7.1, ALB: 1.7, AST: 59 Meds: NACL, SYNTHROID (G-TUBE), KCL, PROTONIX, D5% I&O's: 3570/2705 Skin: COLOSTOMY IN PLACE EDEMA: BLE 2+ EDEMA; BUE 1+ EDEMA Estimated Nutrition Needs: 0529-7574 KCAL 70-88 G PRO Assessment: CHART REVIEWED AND EVENTS NOTED. PT SEEN FOR ENTERAL NUTRITION SUPPORT FOLLOW-UP. PT CURRENTLY ON OXYMIZER RECEVING EN OF JEVITY 1.5 @ 50 ML/HR (X 22 HOURS 2' PT ON SYNTHROID). PER RN AND CHART, PT TOLERATING EN, NOTING NO ISSUES. PER PUMP HISTORY, PT RECEVING ~91% ESTIMATED NUTRIENT NEEDS X 22 HOURS. FAMILY AT BEDSIDE REPORTED NO DIET QUESTIONS AT THIS TIME. RD TO CONTINUE TO FOLLOW. -EN PROVIDES 1650 KCAL, 70 G PRO, 836 ML FREE H20 Dx: INADEQUATE ORAL INTAKE R/T PMH AEB PEG IN PLACE, NPO STATUS.-AEB RESOLVED. NEW DX: INADEQUATE PROTEIN-ENERGY INTAKE R/T PMH AEB PT RECEIVING EN. Intervention: 1. ENTERAL NUTRITION SUPPORT Monitoring, Evaluation and Goals: 1. ENTERAL NUTRITION; PROVIDE >80% ESTIMATED NUTRIENT NEEDS-MET/ACTIVE 2. WEIGHTS; PROMOTE WEIGHT MAINTENANCE-IN PROGRESS 3. LABS; WNL-IN PROGRESS MONITOR: -TF RATE/RESIDUALS -WEIGHTS -LABS [facility] Nutrition Therapy DATE: 08/19/16 Patient: CHADD WILLINGHAM Physician: RAHEEM Address: [facility] Room/Bed: [address], Zip: [place] [address] Admit Date: 08/15/16 Date of : [birth year] Height: 5 7 Weight: 133 60.7 Recommendations: 1. CONTINUE CURRENT ENTERAL NUTRITION SUPPORT OF JEVITY 1.5 @ 50 ML/HR X 22 HOURS (PT ON SYNTHROID-HOLD ONE HOUR BEFORE AND ONE HOUR AFTER ADMINISTRATION) -CONTINUE FREE H20 FLUSHES PER MD 2. CONTINUE TO MONITOR FOR SIGNS OF INTOLERANCE OF EN RD WILL F/U PER PROTOCOL PT IS MODERATELY COMPROMISED Respectfully, JESS GRIJALVA MS, RD, LD Food and Nutritional Services [facility] cc: client file
[~2016-08-15 03:32] MED LIST changes: -COMBIVENT U/D3 M1 INH; -DEEP SEA SPRAY AU; -FLOVENT DISKUS50 MCG AU; -KEPPRA100 MG/ML GT; -KLONOPIN GT; -LAMICTAL150 MG GT; -NEXIUM40 M1 GT; -ONFI10 MG PO; -ONFI20 MG GT; -PATADAY2.5 ML OU; -PHENOBARBITAL64.8 MG GT; -SENNA-LAX8.6 M1 GT; -SYNTHROID0.05 MG PO; -VALPROIC ACID1 ML GT; -VITAMIN D1000 UNI1 PO
[2016-08-15] MEDS ORDERED: DEEP SEA SPRAY AU (03:59)
[2016-08-15] MEDS ORDERED: FLOVENT DISKUS50 MCG AU (04:00)
[2016-08-15] MEDS ORDERED: PATADAY2.5 ML OU (04:00)
[2016-08-15] MEDS ORDERED: COMBIVENT U/D3 M1 INH (04:01)
[2016-08-15] MEDS ORDERED: SYNTHROID0.05 MG PO (04:01)
[2016-08-15] MEDS ORDERED: NEXIUM40 M1 GT (04:02)
[2016-08-15] MEDS ORDERED: ONFI10 MG PO (04:02)
[2016-08-15] MEDS ORDERED: ONFI20 MG GT (04:02)
[2016-08-15] MEDS ORDERED: PHENOBARBITAL64.8 MG GT (04:03)
[2016-08-15] MEDS ORDERED: MYLICON40 MG/0.1 GT (04:04)
[2016-08-15] MEDS ORDERED: SENNA-LAX8.6 M1 GT (04:04)
[2016-08-15] MEDS ORDERED: KLONOPIN GT (04:04)
[2016-08-15] MEDS ORDERED: LAMICTAL150 MG GT (04:05)
[2016-08-15] MEDS ORDERED: KEPPRA100 MG/ML GT (04:06)
[2016-08-15] MEDS ORDERED: VALPROIC ACID1 ML GT (04:07)
[2016-08-15] MEDS ORDERED: VITAMIN D1000 UNI1 PO (04:07)
[2016-08-15 04:51] LABS: BASOPHIL% 0.1 % (0-2.5); EOSINOPHIL# 0.4 X10e3 (0-0.7); EOSINOPHIL% 2.8 % (0.0-7.0); HEMATOCRIT 32.2 % (38.0-50.0); HEMOGLOBIN 10.8 gm/dL (13.0-16.0); LYMPHOCYTE# 2.4 X10e3 (1.0-3.5); LYMPHOCYTE% 16.5 % (17.0-45.0); MEAN CELL VOLUME 96.9 FL (83-96); MEAN CORPUSCULAR HEMOGLOBIN 32.6 PG (28-34); MEAN CORPUSCULAR HGB CONC 33.6 g/dL (30-36); MEAN PLATELET VOLUME 6.9 FL (6.5-11.5); MONOCYTE# 2.4 X10e3 (0-1.0); MONOCYTE% 16.9 % (3.0-12.0); NEUTROPHIL# 9.1 X10e3 (1.5-7.1); NEUTROPHIL% 63.7 % (40-75); PLATELET COUNT 137 X10e3 (140-420); RED BLOOD COUNT 3.32 X10e (3.90-5.60); RED CELL DISTRIBUTION WIDTH 15.1 % (11.0-15.5); WHITE BLOOD COUNT 14.3 X10e3 (4.0-10.5)
[2016-08-15 04:52] LABS: DIFF IND NO
[2016-08-15 04:54] LABS: ARTERIAL BLD GAS O2 SATURATION 78.2 % (90.0-100.0); ARTERIAL BLOOD GAS CARBOXY HB 1.1 %sat (0.0-9.0); ARTERIAL BLOOD GAS HCO3 32.1 mmol/L; ARTERIAL BLOOD GAS PCO2 42.5 mmHg (35.0-45.0); ARTERIAL BLOOD GAS pH 7.487 (7.350-7.450)
[2016-08-15 04:56] LABS: ARTERIAL BLOOD GAS ALLEN TEST NORMAL; ARTERIAL BLOOD GAS ART SITE RIGHT RADIAL; ARTERIAL BLOOD GAS DELIVERY VENT; ARTERIAL BLOOD GAS PO2 40.3 mmHg (80.0-100); ARTERIAL BLOOD GAS VENT MODE AC; ARTERIAL DRAW? YES
[2016-08-15 05:03] LABS: INR 1.1; PARTIAL THROMBOPLASTIN TIME 30.8 SECONDS (23.5-31.3); PROTHROMBIN TIME (PATIENT) 11.5 SECONDS (9.6-11.5)
[2016-08-15 05:13] LABS: ALBUMIN SERUM 2.6 g/dL (3.5-5.0); BILIRUBIN, DIRECT 0.4 mg/dL (0.0-0.2); BILIRUBIN,INDIRECT 0.7 mg/dL (0.0-0.9); BILIRUBIN,TOTAL 1.1 mg/dL (0.2-2.0); CALCIUM SERUM 8.8 mg/dL (8.4-10.2); CREATININE SERUM 0.5 mg/dL (0.6-1.4); GLOM FILT RATE Estimated 129.1 mL/min (>60); MAGNESIUM 1.7 mg/dL (1.6-3.0); PHOSPHOROUS 4.3 mg/dL (2.5-4.6); POTASSIUM 3.8 mmol/L (3.5-5.1); PROTEIN TOTAL SERUM 6.9 g/dL (6.0-8.3)
[2016-08-15 05:18] LABS: POC - CKMB 2.8 ng/mL (0.0-7.9); POC - TROPONIN <0.05 ng/mL (<=0.05)
[2016-08-15 07:39] LABS: ARTERIAL BLD GAS O2 SATURATION 85.7 % (90.0-100.0); ARTERIAL BLOOD GAS ALLEN TEST NORMAL; ARTERIAL BLOOD GAS ART SITE RIGHT RADIAL; ARTERIAL BLOOD GAS CARBOXY HB 0.5 %sat (0.0-9.0); ARTERIAL BLOOD GAS HCO3 26.7 mmol/L; ARTERIAL BLOOD GAS MET HB 0.8 %sat (0.0-2.0); ARTERIAL BLOOD GAS PCO2 38.4 mmHg (35.0-45.0); ARTERIAL BLOOD GAS PO2 51.7 mmHg (80.0-100); ARTERIAL BLOOD GAS pH 7.451 (7.350-7.450); ARTERIAL DRAW? YES
[2016-08-15 07:40] LABS: ARTERIAL BLOOD GAS DELIVERY VENT; ARTERIAL BLOOD GAS VENT MODE A/C
[2016-08-15 09:13] LABS: ARTERIAL BLOOD GAS HCO3 27.9 mmol/L; ARTERIAL BLOOD GAS MET HB 0.4 %sat (0.0-2.0); ARTERIAL BLOOD GAS PCO2 42.5 mmHg (35.0-45.0); ARTERIAL BLOOD GAS pH 7.425 (7.350-7.450)
[2016-08-15 09:15] LABS: ARTERIAL BLOOD GAS ALLEN TEST N; ARTERIAL BLOOD GAS ART SITE RIGHT RADIAL; ARTERIAL BLOOD GAS DELIVERY VENT; ARTERIAL BLOOD GAS VENT MODE AC; ARTERIAL DRAW? YES
[2016-08-15 09:22] LABS: POC - CKMB 6.8 ng/mL (0.0-7.9); POC - TROPONIN <0.05 ng/mL (<=0.05)
[2016-08-15 10:33] LABS: BODY FLUID APPEARANCE TURBID; BODY FLUID SOURCE BRONCHIAL LAVAGE
[2016-08-16 03:46] LABS: ARTERIAL BLD GAS O2 SATURATION 98.9 % (90.0-100.0); ARTERIAL BLOOD GAS ALLEN TEST NORMAL; ARTERIAL BLOOD GAS CARBOXY HB 0.1 %sat (0.0-9.0); ARTERIAL BLOOD GAS HCO3 23.1 mmol/L; ARTERIAL BLOOD GAS MET HB 0.7 %sat (0.0-2.0); ARTERIAL BLOOD GAS PCO2 30.9 mmHg (35.0-45.0); ARTERIAL BLOOD GAS pH 7.483 (7.350-7.450); ARTERIAL DRAW? YES
[2016-08-16 03:47] LABS: ARTERIAL BLOOD GAS ART SITE LEFT RADIAL; ARTERIAL BLOOD GAS DELIVERY VENTILATOR; ARTERIAL BLOOD GAS VENT MODE A/C
[2016-08-16 04:29] LABS: BASOPHIL% 0.1 % (0-2.5); EOSINOPHIL# 0.1 X10e3 (0-0.7); EOSINOPHIL% 0.6 % (0.0-7.0); HEMATOCRIT 27.8 % (38.0-50.0); HEMOGLOBIN 9.3 gm/dL (13.0-16.0); LYMPHOCYTE# 2.1 X10e3 (1.0-3.5); LYMPHOCYTE% 8.2 % (17.0-45.0); MEAN CELL VOLUME 95.9 FL (83-96); MEAN CORPUSCULAR HEMOGLOBIN 32.2 PG (28-34); MEAN CORPUSCULAR HGB CONC 33.6 g/dL (30-36); MEAN PLATELET VOLUME 6.8 FL (6.5-11.5); MONOCYTE# 2.9 X10e3 (0-1.0); MONOCYTE% 11.1 % (3.0-12.0); NEUTROPHIL# 20.9 X10e3 (1.5-7.1); PLATELET COUNT 139 X10e3 (140-420); WHITE BLOOD COUNT 26.2 X10e3 (4.0-10.5)
[2016-08-16 04:30] LABS: DIFF IND YES
[2016-08-16 05:08] LABS: PLATELET ESTIMATE DECREASED (NORMAL)
[2016-08-16 05:09] LABS: ANISOCYTOSIS SL
[2016-08-16 05:10] LABS: ALKALINE PHOSPHATASE 122 U/L (32-92); ALT (SGPT) 26 U/L (10-40); AST (SGOT) 109 U/L (10-42); CALCIUM SERUM 7.2 mg/dL (8.4-10.2); CARBON DIOXIDE 23 mmol/L (22-31); CHLORIDE 108 mmol/L (100-111); CREATININE SERUM 0.5 mg/dL (0.6-1.4); GLOM FILT RATE Estimated 129.1 mL/min (>60); GLUCOSE FASTING 109 mg/dL (70-110); PROTEIN TOTAL SERUM 5.6 g/dL (6.0-8.3); SODIUM 137 mmol/L (135-145)
[2016-08-16 05:13] LABS: BLOOD UREA NITROGEN <5 mg/dL (9-23)
[2016-08-16 05:14] LABS: POTASSIUM 2.9 mmol/L (3.5-5.1)
[2016-08-16 17:12] LABS: BODY FLUID APPEARANCE TURBID; BODY FLUID SOURCE BRONCHIAL LAVAGE
[2016-08-17 02:26] LABS: HEMATOCRIT 23.6 % (38.0-50.0); HEMOGLOBIN 7.8 gm/dL (13.0-16.0); MEAN CELL VOLUME 98.1 FL (83-96); MEAN CORPUSCULAR HEMOGLOBIN 32.3 PG (28-34); RED BLOOD COUNT 2.41 X10e (3.90-5.60); RED CELL DISTRIBUTION WIDTH 15.2 % (11.0-15.5); WHITE BLOOD COUNT 17.1 X10e3 (4.0-10.5)
[2016-08-17 03:46] LABS: HEMATOCRIT 24.2 % (38.0-50.0); HEMOGLOBIN 8.1 gm/dL (13.0-16.0); MEAN CELL VOLUME 96.3 FL (83-96); MEAN CORPUSCULAR HEMOGLOBIN 32.4 PG (28-34); MEAN CORPUSCULAR HGB CONC 33.6 g/dL (30-36); RED BLOOD COUNT 2.51 X10e (3.90-5.60); RED CELL DISTRIBUTION WIDTH 15.1 % (11.0-15.5); WHITE BLOOD COUNT 17.8 X10e3 (4.0-10.5)
[2016-08-17 04:14] LABS: ARTERIAL BLD GAS O2 SATURATION 98.6 % (90.0-100.0); ARTERIAL BLOOD GAS CARBOXY HB 0.2 %sat (0.0-9.0); ARTERIAL BLOOD GAS HCO3 19.6 mmol/L; ARTERIAL BLOOD GAS MET HB 1.1 %sat (0.0-2.0); ARTERIAL BLOOD GAS PCO2 29.9 mmHg (35.0-45.0); ARTERIAL BLOOD GAS pH 7.425 (7.350-7.450)
[2016-08-17 04:18] LABS: BLOOD UREA NITROGEN <5 mg/dL (9-23); BUN/CREATININE RATIO 8.33; CALCIUM SERUM 6.8 mg/dL (8.4-10.2); CARBON DIOXIDE 19 mmol/L (22-31); CHLORIDE 109 mmol/L (100-111); CREATININE SERUM 0.6 mg/dL (0.6-1.4); GLOM FILT RATE Estimated 119.8 mL/min (>60); GLUCOSE FASTING 109 mg/dL (70-110); MAGNESIUM 2.8 mg/dL (1.6-3.0); POTASSIUM 3.3 mmol/L (3.5-5.1); SODIUM 132 mmol/L (135-145)
[2016-08-17 04:22] LABS: ARTERIAL BLOOD GAS ALLEN TEST NORMAL; ARTERIAL BLOOD GAS ART SITE RIGHT RADIAL; ARTERIAL BLOOD GAS DELIVERY VENT; ARTERIAL BLOOD GAS VENT MODE AC; ARTERIAL DRAW? YES
[2016-08-17 13:07] LABS: ARTERIAL BLD GAS O2 SATURATION 99.3 % (90.0-100.0); ARTERIAL BLOOD GAS CARBOXY HB 0.1 %sat (0.0-9.0); ARTERIAL BLOOD GAS HCO3 20.7 mmol/L; ARTERIAL BLOOD GAS PCO2 35.2 mmHg (35.0-45.0); ARTERIAL BLOOD GAS pH 7.377 (7.350-7.450)
[2016-08-17 13:08] LABS: ARTERIAL BLOOD GAS ALLEN TEST NORMAL; ARTERIAL BLOOD GAS ART SITE LEFT RADIAL; ARTERIAL BLOOD GAS DELIVERY 40 % T- PIECE; ARTERIAL DRAW? YES
[2016-08-18 04:09] LABS: ARTERIAL BLD GAS O2 SATURATION 98.4 % (90.0-100.0); ARTERIAL BLOOD GAS CARBOXY HB 0.4 %sat (0.0-9.0); ARTERIAL BLOOD GAS HCO3 23.5 mmol/L; ARTERIAL BLOOD GAS pH 7.327 (7.350-7.450)
[2016-08-18 04:14] LABS: ARTERIAL BLOOD GAS ALLEN TEST NORMAL; ARTERIAL BLOOD GAS ART SITE RIGHT RADIAL; ARTERIAL BLOOD GAS DELIVERY OXYMIZER; ARTERIAL DRAW? YES
[2016-08-18 05:52] LABS: BASOPHIL% 0.1 % (0-2.5); EOSINOPHIL# 0.7 X10e3 (0-0.7); HEMATOCRIT 23.5 % (38.0-50.0); HEMOGLOBIN 7.8 gm/dL (13.0-16.0); LYMPHOCYTE# 1.2 X10e3 (1.0-3.5); LYMPHOCYTE% 10.6 % (17.0-45.0); MEAN CELL VOLUME 98.4 FL (83-96); MEAN CORPUSCULAR HEMOGLOBIN 32.8 PG (28-34); MEAN CORPUSCULAR HGB CONC 33.3 g/dL (30-36); MEAN PLATELET VOLUME 7.2 FL (6.5-11.5); MONOCYTE# 2.1 X10e3 (0-1.0); MONOCYTE% 18.2 % (3.0-12.0); NEUTROPHIL# 7.4 X10e3 (1.5-7.1); NEUTROPHIL% 65.1 % (40-75); PLATELET COUNT 134 X10e3 (140-420); RED BLOOD COUNT 2.39 X10e (3.90-5.60); RED CELL DISTRIBUTION WIDTH 14.9 % (11.0-15.5); WHITE BLOOD COUNT 11.4 X10e3 (4.0-10.5)
[2016-08-18 05:53] LABS: DIFF IND YES
[2016-08-18 06:33] LABS: ALBUMIN SERUM 1.8 g/dL (3.5-5.0); ALKALINE PHOSPHATASE 119 U/L (32-92); ALT (SGPT) 26 U/L (10-40); AST (SGOT) 73 U/L (10-42); BILIRUBIN,TOTAL 0.5 mg/dL (0.2-2.0); CARBON DIOXIDE 22 mmol/L (22-31); CHLORIDE 113 mmol/L (100-111); CREATININE SERUM 0.5 mg/dL (0.6-1.4); GLOM FILT RATE Estimated 129.1 mL/min (>60); GLUCOSE FASTING 98 mg/dL (70-110); POTASSIUM 4.3 mmol/L (3.5-5.1); PROTEIN TOTAL SERUM 5.2 g/dL (6.0-8.3); SODIUM 139 mmol/L (135-145)
[2016-08-18 06:34] LABS: BLOOD UREA NITROGEN <5 mg/dL (9-23)
[2016-08-18 07:44] LABS: HYPOCHROMIA SL; PLATELET ESTIMATE DECREASED (NORMAL); ROULEAUX SLIGHT
[2016-08-19 04:23] LABS: ARTERIAL BLD GAS O2 SATURATION 96.9 % (90.0-100.0); ARTERIAL BLOOD GAS CARBOXY HB 0.5 %sat (0.0-9.0); ARTERIAL BLOOD GAS HCO3 24.6 mmol/L; ARTERIAL BLOOD GAS MET HB 1.1 %sat (0.0-2.0); ARTERIAL BLOOD GAS PCO2 37.7 mmHg (35.0-45.0); ARTERIAL BLOOD GAS PO2 89.6 mmHg (80.0-100); ARTERIAL BLOOD GAS pH 7.422 (7.350-7.450)
[2016-08-19 04:31] LABS: BASOPHIL% 0.1 % (0-2.5); DIFF IND YES; EOSINOPHIL# 0.8 X10e3 (0-0.7); EOSINOPHIL% 8.9 % (0.0-7.0); HEMATOCRIT 22.5 % (38.0-50.0); HEMOGLOBIN 7.8 gm/dL (13.0-16.0); LYMPHOCYTE# 1.8 X10e3 (1.0-3.5); LYMPHOCYTE% 20.2 % (17.0-45.0); MEAN CELL VOLUME 97.7 FL (83-96); MEAN CORPUSCULAR HEMOGLOBIN 33.8 PG (28-34); MEAN CORPUSCULAR HGB CONC 34.5 g/dL (30-36); MEAN PLATELET VOLUME 7.2 FL (6.5-11.5); MONOCYTE# 1.8 X10e3 (0-1.0); MONOCYTE% 20.2 % (3.0-12.0); NEUTROPHIL# 4.5 X10e3 (1.5-7.1); NEUTROPHIL% 50.6 % (40-75); PLATELET COUNT 155 X10e3 (140-420); RED CELL DISTRIBUTION WIDTH 15.3 % (11.0-15.5); WHITE BLOOD COUNT 8.8 X10e3 (4.0-10.5)
[2016-08-19 04:41] LABS: ARTERIAL BLOOD GAS ALLEN TEST NORMAL; ARTERIAL BLOOD GAS ART SITE RIGHT RADIAL; ARTERIAL BLOOD GAS DELIVERY OXYMIZER; ARTERIAL DRAW? YES
[2016-08-19 04:48] LABS: ALBUMIN SERUM 1.7 g/dL (3.5-5.0); BILIRUBIN,TOTAL 0.7 mg/dL (0.2-2.0); CALCIUM SERUM 7.1 mg/dL (8.4-10.2); CREATININE SERUM 0.5 mg/dL (0.6-1.4); GLOM FILT RATE Estimated 129.1 mL/min (>60); POTASSIUM 4.2 mmol/L (3.5-5.1); PROTEIN TOTAL SERUM 5.3 g/dL (6.0-8.3)
[2016-08-19 05:01] LABS: ANISOCYTOSIS MOD; PLATELET ESTIMATE NORMAL (NORMAL)
[2016-08-20 03:59] LABS: ARTERIAL BLD GAS O2 SATURATION 96.9 % (90.0-100.0); ARTERIAL BLOOD GAS CARBOXY HB 0.7 %sat (0.0-9.0); ARTERIAL BLOOD GAS HCO3 25.4 mmol/L; ARTERIAL BLOOD GAS MET HB 0.9 %sat (0.0-2.0); ARTERIAL BLOOD GAS PCO2 46.1 mmHg (35.0-45.0); ARTERIAL BLOOD GAS PO2 89.7 mmHg (80.0-100)
[2016-08-20 04:07] LABS: ARTERIAL BLOOD GAS ART SITE LEFT BRACHIAL; ARTERIAL BLOOD GAS DELIVERY OXYMIZER; ARTERIAL DRAW? YES
[2016-08-20 04:40] LABS: BASOPHIL% 0.4 % (0-2.5); EOSINOPHIL# 0.9 X10e3 (0-0.7); EOSINOPHIL% 11.3 % (0.0-7.0); HEMOGLOBIN 7.1 gm/dL (13.0-16.0); LYMPHOCYTE# 1.8 X10e3 (1.0-3.5); LYMPHOCYTE% 23.9 % (17.0-45.0); MEAN CELL VOLUME 98.9 FL (83-96); MEAN CORPUSCULAR HEMOGLOBIN 33.2 PG (28-34); MEAN CORPUSCULAR HGB CONC 33.6 g/dL (30-36); MEAN PLATELET VOLUME 7.3 FL (6.5-11.5); MONOCYTE# 1.6 X10e3 (0-1.0); MONOCYTE% 21.5 % (3.0-12.0); NEUTROPHIL# 3.3 X10e3 (1.5-7.1); NEUTROPHIL% 42.9 % (40-75); PLATELET COUNT 161 X10e3 (140-420); RED BLOOD COUNT 2.12 X10e (3.90-5.60); RED CELL DISTRIBUTION WIDTH 15.6 % (11.0-15.5); WHITE BLOOD COUNT 7.6 X10e3 (4.0-10.5)
[2016-08-20 04:41] LABS: DIFF IND NO
[2016-08-20 07:16] LABS: ALBUMIN SERUM 1.5 g/dL (3.5-5.0); BILIRUBIN,TOTAL 0.5 mg/dL (0.2-2.0); BUN/CREATININE RATIO 17.5; CREATININE SERUM 0.4 mg/dL (0.6-1.4); GLOM FILT RATE Estimated 141.5 mL/min (>60); POTASSIUM 4.3 mmol/L (3.5-5.1); PROTEIN TOTAL SERUM 4.5 g/dL (6.0-8.3)
[2016-08-21 04:54] LABS: ARTERIAL BLD GAS O2 SATURATION 92.2 % (90.0-100.0); ARTERIAL BLOOD GAS CARBOXY HB 0.7 %sat (0.0-9.0); ARTERIAL BLOOD GAS HCO3 27.3 mmol/L; ARTERIAL BLOOD GAS MET HB 0.8 %sat (0.0-2.0); ARTERIAL BLOOD GAS PCO2 44.5 mmHg (35.0-45.0); ARTERIAL BLOOD GAS pH 7.396 (7.350-7.450)
[2016-08-21 04:55] LABS: ARTERIAL BLOOD GAS ALLEN TEST NORMAL; ARTERIAL BLOOD GAS ART SITE RIGHT RADIAL; ARTERIAL BLOOD GAS DELIVERY NASAL CANNULA; ARTERIAL BLOOD GAS PO2 63.9 mmHg (80.0-100); ARTERIAL DRAW? YES
[2016-08-21 05:29] LABS: BASOPHIL% 0.5 % (0-2.5); EOSINOPHIL# 0.9 X10e3 (0-0.7); EOSINOPHIL% 10.9 % (0.0-7.0); HEMATOCRIT 22.2 % (38.0-50.0); HEMOGLOBIN 7.4 gm/dL (13.0-16.0); LYMPHOCYTE# 2.1 X10e3 (1.0-3.5); LYMPHOCYTE% 26.8 % (17.0-45.0); MEAN CELL VOLUME 99.1 FL (83-96); MEAN CORPUSCULAR HEMOGLOBIN 32.9 PG (28-34); MEAN CORPUSCULAR HGB CONC 33.2 g/dL (30-36); MEAN PLATELET VOLUME 7.2 FL (6.5-11.5); MONOCYTE# 1.5 X10e3 (0-1.0); MONOCYTE% 19.6 % (3.0-12.0); NEUTROPHIL# 3.3 X10e3 (1.5-7.1); NEUTROPHIL% 42.2 % (40-75); PLATELET COUNT 187 X10e3 (140-420); RED BLOOD COUNT 2.24 X10e (3.90-5.60); RED CELL DISTRIBUTION WIDTH 15.7 % (11.0-15.5); WHITE BLOOD COUNT 7.8 X10e3 (4.0-10.5)
[2016-08-21 05:34] LABS: DIFF IND NO
[2016-08-21 06:10] LABS: ALBUMIN SERUM 1.6 g/dL (3.5-5.0); BILIRUBIN,TOTAL 0.6 mg/dL (0.2-2.0); BUN/CREATININE RATIO 23.33; CALCIUM SERUM 7.4 mg/dL (8.4-10.2); CREATININE SERUM 0.3 mg/dL (0.6-1.4); GLOM FILT RATE Estimated 159.3 mL/min (>60); MAGNESIUM 1.8 mg/dL (1.6-3.0)
[2016-08-21 18:51] LABS: HEMATOCRIT 20.7 % (38.0-50.0)
[2016-08-21 18:54] LABS: HEMOGLOBIN 6.9 gm/dL (13.0-16.0)
[2016-08-22 04:02] LABS: ARTERIAL BLD GAS O2 SATURATION 92.4 % (90.0-100.0); ARTERIAL BLOOD GAS HCO3 29.5 mmol/L; ARTERIAL BLOOD GAS PCO2 47.1 mmHg (35.0-45.0); ARTERIAL BLOOD GAS pH 7.405 (7.350-7.450)
[2016-08-22 04:05] LABS: ARTERIAL BLOOD GAS ALLEN TEST NORMAL; ARTERIAL BLOOD GAS ART SITE RIGHT RADIAL; ARTERIAL BLOOD GAS DELIVERY NASAL CANNULA; ARTERIAL BLOOD GAS PO2 63.8 mmHg (80.0-100); ARTERIAL DRAW? YES
[2016-08-22 06:35] LABS: BASOPHIL% 0.3 % (0-2.5); EOSINOPHIL# 0.9 X10e3 (0-0.7); EOSINOPHIL% 10.5 % (0.0-7.0); HEMATOCRIT 25.8 % (38.0-50.0); HEMOGLOBIN 8.7 gm/dL (13.0-16.0); LYMPHOCYTE# 2.1 X10e3 (1.0-3.5); LYMPHOCYTE% 24.2 % (17.0-45.0); MEAN CORPUSCULAR HEMOGLOBIN 32.2 PG (28-34); MEAN CORPUSCULAR HGB CONC 33.8 g/dL (30-36); MEAN PLATELET VOLUME 7.1 FL (6.5-11.5); MONOCYTE# 1.7 X10e3 (0-1.0); MONOCYTE% 19.2 % (3.0-12.0); NEUTROPHIL% 45.8 % (40-75); PLATELET COUNT 216 X10e3 (140-420); RED BLOOD COUNT 2.71 X10e (3.90-5.60); RED CELL DISTRIBUTION WIDTH 18.4 % (11.0-15.5); WHITE BLOOD COUNT 8.8 X10e3 (4.0-10.5)
[2016-08-22 06:41] LABS: MEAN CELL VOLUME 95.2 FL (83-96)
[2016-08-22 06:42] LABS: DIFF IND YES
[2016-08-22 07:23] LABS: RBC NORMAL YES
[2016-08-22 07:24] LABS: ANISOCYTOSIS SL
[2016-08-22 07:26] LABS: PLATELET ESTIMATE NORMAL (NORMAL)
[2016-08-22 08:17] LABS: ALBUMIN SERUM 1.6 g/dL (3.5-5.0); BILIRUBIN,TOTAL 0.3 mg/dL (0.2-2.0); CALCIUM SERUM 7.5 mg/dL (8.4-10.2); CREATININE SERUM 0.5 mg/dL (0.6-1.4); GLOM FILT RATE Estimated 129.1 mL/min (>60); MAGNESIUM 1.9 mg/dL (1.6-3.0); PROTEIN TOTAL SERUM 5.1 g/dL (6.0-8.3)
[2016-08-23 04:23] LABS: ARTERIAL BLD GAS O2 SATURATION 94.9 % (90.0-100.0); ARTERIAL BLOOD GAS CARBOXY HB 0.5 %sat (0.0-9.0); ARTERIAL BLOOD GAS HCO3 34.3 mmol/L; ARTERIAL BLOOD GAS MET HB 0.8 %sat (0.0-2.0); ARTERIAL BLOOD GAS pH 7.431 (7.350-7.450)
[2016-08-23 04:36] LABS: ARTERIAL BLOOD GAS ALLEN TEST NORMAL; ARTERIAL BLOOD GAS ART SITE LEFT RADIAL; ARTERIAL BLOOD GAS DELIVERY OXYMIZER; ARTERIAL BLOOD GAS PCO2 51.7 mmHg (35.0-45.0); ARTERIAL BLOOD GAS PO2 73.2 mmHg (80.0-100); ARTERIAL DRAW? YES
[2016-08-23 05:05] LABS: BASOPHIL% 0.2 % (0-2.5); DIFF IND NO; EOSINOPHIL# 0.8 X10e3 (0-0.7); EOSINOPHIL% 8.2 % (0.0-7.0); HEMATOCRIT 26.6 % (38.0-50.0); LYMPHOCYTE# 2.6 X10e3 (1.0-3.5); MEAN CELL VOLUME 94.6 FL (83-96); MEAN CORPUSCULAR HEMOGLOBIN 32.1 PG (28-34); MEAN CORPUSCULAR HGB CONC 33.9 g/dL (30-36); MEAN PLATELET VOLUME 6.9 FL (6.5-11.5); MONOCYTE# 1.6 X10e3 (0-1.0); MONOCYTE% 16.5 % (3.0-12.0); NEUTROPHIL# 4.6 X10e3 (1.5-7.1); NEUTROPHIL% 48.1 % (40-75); PLATELET COUNT 268 X10e3 (140-420); RED BLOOD COUNT 2.82 X10e (3.90-5.60); RED CELL DISTRIBUTION WIDTH 17.8 % (11.0-15.5); WHITE BLOOD COUNT 9.6 X10e3 (4.0-10.5)
[2016-08-23 06:25] LABS: ALBUMIN SERUM 1.7 g/dL (3.5-5.0); BILIRUBIN,TOTAL 0.4 mg/dL (0.2-2.0); BUN/CREATININE RATIO 11.66; CALCIUM SERUM 7.8 mg/dL (8.4-10.2); CREATININE SERUM 0.6 mg/dL (0.6-1.4); GLOM FILT RATE Estimated 119.8 mL/min (>60); MAGNESIUM 1.9 mg/dL (1.6-3.0); POTASSIUM 3.8 mmol/L (3.5-5.1); PROTEIN TOTAL SERUM 5.6 g/dL (6.0-8.3)
[2016-08-24 04:29] LABS: ARTERIAL BLD GAS O2 SATURATION 98.7 % (90.0-100.0); ARTERIAL BLOOD GAS CARBOXY HB 0.2 %sat (0.0-9.0); ARTERIAL BLOOD GAS HCO3 35.3 mmol/L; ARTERIAL BLOOD GAS MET HB 0.4 %sat (0.0-2.0); ARTERIAL BLOOD GAS pH 7.438 (7.350-7.450)
[2016-08-24 04:35] LABS: ARTERIAL BLOOD GAS PCO2 52.3 mmHg (35.0-45.0)
[2016-08-24 04:36] LABS: ARTERIAL BLOOD GAS ALLEN TEST NORMAL; ARTERIAL BLOOD GAS ART SITE LEFT RADIAL; ARTERIAL BLOOD GAS DELIVERY OXYMIZER; ARTERIAL DRAW? YES
[2016-08-24 05:11] LABS: HEMATOCRIT 26.8 % (38.0-50.0); HEMOGLOBIN 8.9 gm/dL (13.0-16.0); MEAN CELL VOLUME 96.1 FL (83-96); MEAN CORPUSCULAR HGB CONC 33.3 g/dL (30-36); MEAN PLATELET VOLUME 6.9 FL (6.5-11.5); RED BLOOD COUNT 2.79 X10e (3.90-5.60); RED CELL DISTRIBUTION WIDTH 17.9 % (11.0-15.5); WHITE BLOOD COUNT 9.1 X10e3 (4.0-10.5)
[2016-08-24 05:54] LABS: ALBUMIN SERUM 1.8 g/dL (3.5-5.0); BILIRUBIN,TOTAL 0.5 mg/dL (0.2-2.0); CALCIUM SERUM 8.1 mg/dL (8.4-10.2); CREATININE SERUM 0.5 mg/dL (0.6-1.4); GLOM FILT RATE Estimated 129.1 mL/min (>60); MAGNESIUM 1.9 mg/dL (1.6-3.0); POTASSIUM 4.3 mmol/L (3.5-5.1); PROTEIN TOTAL SERUM 5.5 g/dL (6.0-8.3)
[2016-08-25 05:29] LABS: HEMATOCRIT 27.5 % (38.0-50.0); HEMOGLOBIN 9.3 gm/dL (13.0-16.0); MEAN CELL VOLUME 95.3 FL (83-96); MEAN CORPUSCULAR HEMOGLOBIN 32.2 PG (28-34); MEAN CORPUSCULAR HGB CONC 33.8 g/dL (30-36); MEAN PLATELET VOLUME 6.4 FL (6.5-11.5); RED BLOOD COUNT 2.89 X10e (3.90-5.60); RED CELL DISTRIBUTION WIDTH 17.3 % (11.0-15.5); WHITE BLOOD COUNT 9.1 X10e3 (4.0-10.5)
[2016-08-25 06:42] LABS: CALCIUM SERUM 8.4 mg/dL (8.4-10.2); CREATININE SERUM 0.5 mg/dL (0.6-1.4); GLOM FILT RATE Estimated 129.1 mL/min (>60); MAGNESIUM 1.9 mg/dL (1.6-3.0); POTASSIUM 4.6 mmol/L (3.5-5.1)
[2016-08-26 07:57] LABS: HEMATOCRIT 29.1 % (38.0-50.0); HEMOGLOBIN 9.6 gm/dL (13.0-16.0); MEAN CELL VOLUME 96.6 FL (83-96); MEAN CORPUSCULAR HGB CONC 33.1 g/dL (30-36); MEAN PLATELET VOLUME 6.5 FL (6.5-11.5); RED BLOOD COUNT 3.01 X10e (3.90-5.60); RED CELL DISTRIBUTION WIDTH 17.3 % (11.0-15.5); WHITE BLOOD COUNT 10.7 X10e3 (4.0-10.5)
[2016-08-26 09:00] LABS: ALBUMIN SERUM 1.9 g/dL (3.5-5.0); CALCIUM SERUM 8.6 mg/dL (8.4-10.2); CREATININE SERUM 0.5 mg/dL (0.6-1.4); GLOM FILT RATE Estimated 129.1 mL/min (>60); PROTEIN TOTAL SERUM 6.1 g/dL (6.0-8.3)
[2016-08-28 12:04] LABS: BODY FLUID APPEARANCE BLOODY; BODY FLUID SOURCE BRONCHIAL LAVAGE
[2016-08-28 17:42] LABS: ARTERIAL BLD GAS O2 SATURATION 97.7 % (90.0-100.0); ARTERIAL BLOOD GAS CARBOXY HB 0.6 %sat (0.0-9.0); ARTERIAL BLOOD GAS HCO3 33.9 mmol/L; ARTERIAL BLOOD GAS MET HB 1.1 %sat (0.0-2.0); ARTERIAL BLOOD GAS pH 7.409 (7.350-7.450)
[2016-08-28 17:43] LABS: ARTERIAL BLOOD GAS ALLEN TEST NORMAL; ARTERIAL BLOOD GAS PCO2 53.7 mmHg (35.0-45.0); ARTERIAL DRAW? YES
[2016-08-28 17:44] LABS: ARTERIAL BLOOD GAS ART SITE LEFT RADIAL; ARTERIAL BLOOD GAS DELIVERY NON REBREATHER MASK
[2016-08-28 19:04] LABS: ARTERIAL BLD GAS O2 SATURATION 98.4 % (90.0-100.0); ARTERIAL BLOOD GAS CARBOXY HB 0.7 %sat (0.0-9.0); ARTERIAL BLOOD GAS HCO3 30.4 mmol/L; ARTERIAL BLOOD GAS MET HB 1.1 %sat (0.0-2.0); ARTERIAL BLOOD GAS PCO2 45.9 mmHg (35.0-45.0)
[2016-08-28 19:05] LABS: ARTERIAL BLOOD GAS ART SITE RIGHT BRACHIAL; ARTERIAL BLOOD GAS DELIVERY VENT; ARTERIAL BLOOD GAS VENT MODE AC; ARTERIAL DRAW? YES
[2016-08-28 23:58] LABS: BUN/CREATININE RATIO 15.62; CREATININE SERUM 1.6 mg/dL (0.6-1.4); GLOM FILT RATE Estimated 50.6 mL/min (>60); POTASSIUM 3.9 mmol/L (3.5-5.1)
[2016-08-29 05:07] LABS: ARTERIAL BLD GAS O2 SATURATION 98.2 % (90.0-100.0); ARTERIAL BLOOD GAS ALLEN TEST NORMAL; ARTERIAL BLOOD GAS ART SITE LEFT RADIAL; ARTERIAL BLOOD GAS CARBOXY HB 0.8 %sat (0.0-9.0); ARTERIAL BLOOD GAS DELIVERY VENT; ARTERIAL BLOOD GAS HCO3 26.3 mmol/L; ARTERIAL BLOOD GAS MET HB 1.2 %sat (0.0-2.0); ARTERIAL BLOOD GAS PCO2 38.1 mmHg (35.0-45.0); ARTERIAL BLOOD GAS PO2 90.2 mmHg (80.0-100); ARTERIAL BLOOD GAS VENT MODE AC; ARTERIAL BLOOD GAS pH 7.448 (7.350-7.450); ARTERIAL DRAW? YES
[2016-08-29 05:39] LABS: BASOPHIL# 0.1 X10e3 (0-0.3); BASOPHIL% 0.2 % (0-2.5); EOSINOPHIL# 0.1 X10e3 (0-0.7); EOSINOPHIL% 0.4 % (0.0-7.0); HEMATOCRIT 26.3 % (38.0-50.0); HEMOGLOBIN 8.5 gm/dL (13.0-16.0); LYMPHOCYTE# 2.2 X10e3 (1.0-3.5); LYMPHOCYTE% 7.3 % (17.0-45.0); MEAN CELL VOLUME 98.6 FL (83-96); MEAN CORPUSCULAR HEMOGLOBIN 31.9 PG (28-34); MEAN CORPUSCULAR HGB CONC 32.4 g/dL (30-36); MEAN PLATELET VOLUME 7.8 FL (6.5-11.5); MONOCYTE# 5.7 X10e3 (0-1.0); NEUTROPHIL# 21.8 X10e3 (1.5-7.1); NEUTROPHIL% 73.1 % (40-75); PLATELET COUNT 121 X10e3 (140-420); RED BLOOD COUNT 2.67 X10e (3.90-5.60); WHITE BLOOD COUNT 29.8 X10e3 (4.0-10.5)
[2016-08-29 05:40] LABS: DIFF IND YES
[2016-08-29 06:06] LABS: ANISOCYTOSIS SL; NUCLEATED RED BLOOD CELL 1 /100 (0); PLATELET ESTIMATE DECREASED (NORMAL); RBC NORMAL YES
[2016-08-29 06:07] LABS: STOMATOCYTE PRESENT
[2016-08-29 07:07] LABS: ALBUMIN SERUM 1.6 g/dL (3.5-5.0); BUN/CREATININE RATIO 17.14; CALCIUM SERUM 7.1 mg/dL (8.4-10.2); CREATININE SERUM 1.4 mg/dL (0.6-1.4); GLOM FILT RATE Estimated 59.4 mL/min (>60); MAGNESIUM 1.1 mg/dL (1.6-3.0); POTASSIUM 3.7 mmol/L (3.5-5.1); PROTEIN TOTAL SERUM 5.5 g/dL (6.0-8.3)
[2016-08-29 17:34] LABS: DEPAKENE (VALPROIC ACID) 54 ug/mL (50-125)
[2016-08-30 04:31] LABS: ARTERIAL BLD GAS O2 SATURATION 99.2 % (90.0-100.0); ARTERIAL BLOOD GAS HCO3 23.4 mmol/L; ARTERIAL BLOOD GAS PCO2 39.1 mmHg (35.0-45.0); ARTERIAL BLOOD GAS pH 7.385 (7.350-7.450)
[2016-08-30 04:32] LABS: ARTERIAL BLOOD GAS ART SITE LEFT BRACHIAL; ARTERIAL BLOOD GAS CARBOXY HB 0.6 %sat (0.0-9.0); ARTERIAL BLOOD GAS DELIVERY VENT; ARTERIAL BLOOD GAS MET HB 0.7 %sat (0.0-2.0); ARTERIAL BLOOD GAS VENT MODE AC; ARTERIAL DRAW? YES
[2016-08-30 05:44] LABS: BASOPHIL# 0.1 X10e3 (0-0.3); BASOPHIL% 0.2 % (0-2.5); EOSINOPHIL# 0.1 X10e3 (0-0.7); EOSINOPHIL% 0.4 % (0.0-7.0); HEMATOCRIT 28.5 % (38.0-50.0); HEMOGLOBIN 9.2 gm/dL (13.0-16.0); LYMPHOCYTE# 2.2 X10e3 (1.0-3.5); LYMPHOCYTE% 6.2 % (17.0-45.0); MEAN CORPUSCULAR HEMOGLOBIN 31.9 PG (28-34); MEAN CORPUSCULAR HGB CONC 32.2 g/dL (30-36); MEAN PLATELET VOLUME 7.8 FL (6.5-11.5); MONOCYTE# 5.1 X10e3 (0-1.0); MONOCYTE% 14.5 % (3.0-12.0); NEUTROPHIL# 27.4 X10e3 (1.5-7.1); NEUTROPHIL% 78.7 % (40-75); PLATELET COUNT 141 X10e3 (140-420); RED BLOOD COUNT 2.88 X10e (3.90-5.60); RED CELL DISTRIBUTION WIDTH 19.4 % (11.0-15.5); WHITE BLOOD COUNT 34.9 X10e3 (4.0-10.5)
[2016-08-30 05:46] LABS: DIFF IND NO
[2016-08-30 06:35] LABS: ALBUMIN SERUM 1.6 g/dL (3.5-5.0); BILIRUBIN,TOTAL 0.7 mg/dL (0.2-2.0); CALCIUM SERUM 6.6 mg/dL (8.4-10.2); CREATININE SERUM 0.6 mg/dL (0.6-1.4); GLOM FILT RATE Estimated 119.8 mL/min (>60)
[2016-08-30 06:40] LABS: POTASSIUM 2.7 mmol/L (3.5-5.1)
[2016-08-30 17:28] LABS: POTASSIUM 3.6 mmol/L (3.5-5.1); TOBRAMYCIN PEAK EXTEND DOSING 10.7 ug/ml (15.0-26.0)
[2016-08-31 04:09] LABS: ARTERIAL BLD GAS O2 SATURATION 98.5 % (90.0-100.0); ARTERIAL BLOOD GAS ALLEN TEST NORMAL; ARTERIAL BLOOD GAS ART SITE RIGHT RADIAL; ARTERIAL BLOOD GAS CARBOXY HB 0.4 %sat (0.0-9.0); ARTERIAL BLOOD GAS DELIVERY VENT; ARTERIAL BLOOD GAS HCO3 21.7 mmol/L; ARTERIAL BLOOD GAS MET HB 0.7 %sat (0.0-2.0); ARTERIAL BLOOD GAS PCO2 35.2 mmHg (35.0-45.0); ARTERIAL BLOOD GAS PO2 95.9 mmHg (80.0-100); ARTERIAL BLOOD GAS VENT MODE AC; ARTERIAL BLOOD GAS pH 7.398 (7.350-7.450); ARTERIAL DRAW? YES
[2016-08-31 08:27] LABS: HEMOGLOBIN 7.8 gm/dL (13.0-16.0); MEAN CELL VOLUME 97.6 FL (83-96); MEAN CORPUSCULAR HEMOGLOBIN 31.7 PG (28-34); MEAN CORPUSCULAR HGB CONC 32.5 g/dL (30-36); MEAN PLATELET VOLUME 7.7 FL (6.5-11.5); RED BLOOD COUNT 2.46 X10e (3.90-5.60); RED CELL DISTRIBUTION WIDTH 19.4 % (11.0-15.5); WHITE BLOOD COUNT 20.5 X10e3 (4.0-10.5)
[2016-08-31 09:02] LABS: ALBUMIN SERUM 1.5 g/dL (3.5-5.0); CREATININE SERUM 0.4 mg/dL (0.6-1.4); GLOM FILT RATE Estimated 141.5 mL/min (>60); MAGNESIUM 1.5 mg/dL (1.6-3.0); POTASSIUM 3.6 mmol/L (3.5-5.1); PROTEIN TOTAL SERUM 5.1 g/dL (6.0-8.3)
[2016-09-01 03:32] LABS: HEMATOCRIT 23.1 % (38.0-50.0); HEMOGLOBIN 7.6 gm/dL (13.0-16.0); MEAN CELL VOLUME 96.9 FL (83-96); MEAN CORPUSCULAR HEMOGLOBIN 31.7 PG (28-34); MEAN CORPUSCULAR HGB CONC 32.7 g/dL (30-36); MEAN PLATELET VOLUME 8.3 FL (6.5-11.5); RED BLOOD COUNT 2.39 X10e (3.90-5.60); RED CELL DISTRIBUTION WIDTH 19.7 % (11.0-15.5); WHITE BLOOD COUNT 16.9 X10e3 (4.0-10.5)
[2016-09-01 04:00] LABS: ALBUMIN SERUM 1.5 g/dL (3.5-5.0); CALCIUM SERUM 6.1 mg/dL (8.4-10.2); CREATININE SERUM 0.4 mg/dL (0.6-1.4); GLOM FILT RATE Estimated 141.5 mL/min (>60); MAGNESIUM 2.5 mg/dL (1.6-3.0); POTASSIUM 3.3 mmol/L (3.5-5.1); PROTEIN TOTAL SERUM 4.9 g/dL (6.0-8.3)
[2016-09-01 04:05] LABS: ARTERIAL BLD GAS O2 SATURATION 97.4 % (90.0-100.0); ARTERIAL BLOOD GAS ALLEN TEST NORMAL; ARTERIAL BLOOD GAS ART SITE RIGHT RADIAL; ARTERIAL BLOOD GAS CARBOXY HB 0.4 %sat (0.0-9.0); ARTERIAL BLOOD GAS DELIVERY VENT; ARTERIAL BLOOD GAS HCO3 23.9 mmol/L; ARTERIAL BLOOD GAS MET HB 0.9 %sat (0.0-2.0); ARTERIAL BLOOD GAS PO2 74.9 mmHg (80.0-100); ARTERIAL BLOOD GAS VENT MODE A/C; ARTERIAL DRAW? YES
[2016-09-02 03:55] LABS: ARTERIAL BLD GAS O2 SATURATION 96.9 % (90.0-100.0); ARTERIAL BLOOD GAS ALLEN TEST NORMAL; ARTERIAL BLOOD GAS ART SITE RIGHT RADIAL; ARTERIAL BLOOD GAS CARBOXY HB 0.8 %sat (0.0-9.0); ARTERIAL BLOOD GAS DELIVERY VENT; ARTERIAL BLOOD GAS HCO3 25.5 mmol/L; ARTERIAL BLOOD GAS PCO2 35.6 mmHg (35.0-45.0); ARTERIAL BLOOD GAS PO2 75.3 mmHg (80.0-100); ARTERIAL BLOOD GAS VENT MODE A/C; ARTERIAL BLOOD GAS pH 7.464 (7.350-7.450); ARTERIAL DRAW? YES
[2016-09-02 06:19] LABS: CALCIUM SERUM 6.2 mg/dL (8.4-10.2); CREATININE SERUM 0.4 mg/dL (0.6-1.4); GLOM FILT RATE Estimated 141.5 mL/min (>60); POTASSIUM 3.7 mmol/L (3.5-5.1)
[2016-09-02 07:26] LABS: BASOPHIL# 0.1 X10e3 (0-0.3); BASOPHIL% 0.4 % (0-2.5); EOSINOPHIL# 0.1 X10e3 (0-0.7); EOSINOPHIL% 0.5 % (0.0-7.0); HEMOGLOBIN 9.8 gm/dL (13.0-16.0); LYMPHOCYTE# 2.8 X10e3 (1.0-3.5); LYMPHOCYTE% 20.8 % (17.0-45.0); MEAN CORPUSCULAR HEMOGLOBIN 31.4 PG (28-34); MEAN CORPUSCULAR HGB CONC 32.7 g/dL (30-36); MEAN PLATELET VOLUME 9.1 FL (6.5-11.5); MONOCYTE# 0.8 X10e3 (0-1.0); MONOCYTE% 5.9 % (3.0-12.0); NEUTROPHIL# 9.6 X10e3 (1.5-7.1); NEUTROPHIL% 72.4 % (40-75); PLATELET COUNT 144 X10e3 (140-420); RED BLOOD COUNT 3.13 X10e (3.90-5.60); RED CELL DISTRIBUTION WIDTH 19.6 % (11.0-15.5); WHITE BLOOD COUNT 13.2 X10e3 (4.0-10.5)
[2016-09-02 07:27] LABS: DIFF IND YES
[2016-09-02 07:50] LABS: ANISOCYTOSIS SL; PLATELET ESTIMATE NORMAL (NORMAL); RBC NORMAL YES
[2016-09-02 07:54] LABS: TARGET CELLS SL
[2016-09-02 12:56] LABS: ARTERIAL BLD GAS O2 SATURATION 93.5 % (90.0-100.0); ARTERIAL BLOOD GAS CARBOXY HB 0.6 %sat (0.0-9.0); ARTERIAL BLOOD GAS HCO3 26.9 mmol/L; ARTERIAL BLOOD GAS MET HB 0.8 %sat (0.0-2.0); ARTERIAL BLOOD GAS PCO2 43.9 mmHg (35.0-45.0); ARTERIAL BLOOD GAS PO2 65.8 mmHg (80.0-100); ARTERIAL BLOOD GAS pH 7.395 (7.350-7.450)
[2016-09-02 12:57] LABS: ARTERIAL BLOOD GAS ALLEN TEST NORMAL; ARTERIAL BLOOD GAS ART SITE RIGHT RADIAL; ARTERIAL BLOOD GAS DELIVERY TPIECE; ARTERIAL DRAW? YES
[2016-09-03 03:49] LABS: ARTERIAL BLD GAS O2 SATURATION 96.5 % (90.0-100.0); ARTERIAL BLOOD GAS ALLEN TEST NORMAL; ARTERIAL BLOOD GAS ART SITE RIGHT RADIAL; ARTERIAL BLOOD GAS CARBOXY HB 0.7 %sat (0.0-9.0); ARTERIAL BLOOD GAS DELIVERY VENT; ARTERIAL BLOOD GAS HCO3 28.8 mmol/L; ARTERIAL BLOOD GAS PCO2 32.6 mmHg (35.0-45.0); ARTERIAL BLOOD GAS PO2 70.7 mmHg (80.0-100); ARTERIAL BLOOD GAS VENT MODE AC; ARTERIAL BLOOD GAS pH 7.555 (7.350-7.450); ARTERIAL DRAW? YES
[2016-09-03 05:40] LABS: HEMOGLOBIN 10.1 gm/dL (13.0-16.0); MEAN CELL VOLUME 93.6 FL (83-96); MEAN CORPUSCULAR HEMOGLOBIN 31.4 PG (28-34); MEAN CORPUSCULAR HGB CONC 33.6 g/dL (30-36); MEAN PLATELET VOLUME 7.5 FL (6.5-11.5); RED BLOOD COUNT 3.21 X10e (3.90-5.60); RED CELL DISTRIBUTION WIDTH 19.3 % (11.0-15.5); WHITE BLOOD COUNT 14.3 X10e3 (4.0-10.5)
[2016-09-03 06:45] LABS: ALBUMIN SERUM 1.7 g/dL (3.5-5.0); CALCIUM SERUM 6.5 mg/dL (8.4-10.2); CREATININE SERUM 0.5 mg/dL (0.6-1.4); GLOM FILT RATE Estimated 129.1 mL/min (>60); PROTEIN TOTAL SERUM 5.2 g/dL (6.0-8.3)
[2016-09-03 06:48] LABS: POTASSIUM 2.8 mmol/L (3.5-5.1)
[2016-09-03 12:40] LABS: ARTERIAL BLD GAS O2 SATURATION 93.1 % (90.0-100.0); ARTERIAL BLOOD GAS ALLEN TEST NORMAL; ARTERIAL BLOOD GAS CARBOXY HB 0.6 %sat (0.0-9.0); ARTERIAL BLOOD GAS HCO3 28.6 mmol/L; ARTERIAL BLOOD GAS MET HB 0.9 %sat (0.0-2.0); ARTERIAL BLOOD GAS PCO2 47.4 mmHg (35.0-45.0); ARTERIAL BLOOD GAS pH 7.389 (7.350-7.450); ARTERIAL DRAW? YES
[2016-09-03 12:41] LABS: ARTERIAL BLOOD GAS ART SITE LEFT RADIAL; ARTERIAL BLOOD GAS DELIVERY T-PIECE
[2016-09-04 02:42] LABS: BASOPHIL% 0.2 % (0-2.5); HEMATOCRIT 29.7 % (38.0-50.0); LYMPHOCYTE# 1.8 X10e3 (1.0-3.5); LYMPHOCYTE% 11.7 % (17.0-45.0); MEAN CELL VOLUME 94.1 FL (83-96); MEAN CORPUSCULAR HEMOGLOBIN 31.6 PG (28-34); MEAN CORPUSCULAR HGB CONC 33.6 g/dL (30-36); MEAN PLATELET VOLUME 7.6 FL (6.5-11.5); MONOCYTE% 12.8 % (3.0-12.0); NEUTROPHIL# 11.6 X10e3 (1.5-7.1); NEUTROPHIL% 75.3 % (40-75); PLATELET COUNT 183 X10e3 (140-420); RED BLOOD COUNT 3.16 X10e (3.90-5.60); RED CELL DISTRIBUTION WIDTH 18.6 % (11.0-15.5); WHITE BLOOD COUNT 15.3 X10e3 (4.0-10.5)
[2016-09-04 02:48] LABS: DIFF IND YES
[2016-09-04 03:07] LABS: ALBUMIN SERUM 1.8 g/dL (3.5-5.0); BILIRUBIN,TOTAL 0.8 mg/dL (0.2-2.0); CALCIUM SERUM 6.3 mg/dL (8.4-10.2); CREATININE SERUM 0.5 mg/dL (0.6-1.4); GLOM FILT RATE Estimated 129.1 mL/min (>60); POTASSIUM 3.2 mmol/L (3.5-5.1); PROTEIN TOTAL SERUM 5.5 g/dL (6.0-8.3)
[2016-09-04 04:01] LABS: ANISOCYTOSIS MOD; HYPOCHROMIA SL; NUCLEATED RED BLOOD CELL 1 /100 (0); PLATELET ESTIMATE DECREASED (NORMAL); TARGET CELLS SL
[2016-09-04 04:02] LABS: STOMATOCYTE PRESENT
[2016-09-04 05:10] LABS: ARTERIAL BLOOD GAS HCO3 30.5 mmol/L; ARTERIAL BLOOD GAS PCO2 37.3 mmHg (35.0-45.0); ARTERIAL BLOOD GAS PO2 78.7 mmHg (80.0-100); ARTERIAL BLOOD GAS pH 7.522 (7.350-7.450)
[2016-09-04 05:11] LABS: ARTERIAL BLD GAS O2 SATURATION 97.5 % (90.0-100.0); ARTERIAL BLOOD GAS ALLEN TEST NORMAL; ARTERIAL BLOOD GAS ART SITE LEFT BRACHIAL; ARTERIAL BLOOD GAS CARBOXY HB 0.9 %sat (0.0-9.0); ARTERIAL BLOOD GAS DELIVERY VENT; ARTERIAL BLOOD GAS MET HB 0.9 %sat (0.0-2.0); ARTERIAL BLOOD GAS VENT MODE AC; ARTERIAL DRAW? YES
[2016-09-05 04:24] LABS: BASOPHIL% 0.1 % (0-2.5); EOSINOPHIL% 0.1 % (0.0-7.0); HEMATOCRIT 26.4 % (38.0-50.0); HEMOGLOBIN 8.7 gm/dL (13.0-16.0); LYMPHOCYTE% 29.6 % (17.0-45.0); MEAN CELL VOLUME 95.6 FL (83-96); MEAN CORPUSCULAR HEMOGLOBIN 31.7 PG (28-34); MEAN CORPUSCULAR HGB CONC 33.1 g/dL (30-36); MEAN PLATELET VOLUME 7.7 FL (6.5-11.5); MONOCYTE# 2.4 X10e3 (0-1.0); MONOCYTE% 14.4 % (3.0-12.0); NEUTROPHIL# 9.4 X10e3 (1.5-7.1); NEUTROPHIL% 55.8 % (40-75); PLATELET COUNT 170 X10e3 (140-420); RED BLOOD COUNT 2.76 X10e (3.90-5.60); RED CELL DISTRIBUTION WIDTH 19.2 % (11.0-15.5); WHITE BLOOD COUNT 16.9 X10e3 (4.0-10.5)
[2016-09-05 04:25] LABS: DIFF IND NO
[2016-09-05 04:37] LABS: ARTERIAL BLD GAS O2 SATURATION 95.8 % (90.0-100.0); ARTERIAL BLOOD GAS ALLEN TEST NORMAL; ARTERIAL BLOOD GAS ART SITE LEFT RADIAL; ARTERIAL BLOOD GAS CARBOXY HB 0.6 %sat (0.0-9.0); ARTERIAL BLOOD GAS DELIVERY VENT; ARTERIAL BLOOD GAS HCO3 29.9 mmol/L; ARTERIAL BLOOD GAS MET HB 0.8 %sat (0.0-2.0); ARTERIAL BLOOD GAS PCO2 37.3 mmHg (35.0-45.0); ARTERIAL BLOOD GAS PO2 70.6 mmHg (80.0-100); ARTERIAL BLOOD GAS VENT MODE AC; ARTERIAL BLOOD GAS pH 7.512 (7.350-7.450); ARTERIAL DRAW? YES
[2016-09-05 04:59] LABS: BUN/CREATININE RATIO 57.5; CALCIUM SERUM 6.4 mg/dL (8.4-10.2); CREATININE SERUM 0.4 mg/dL (0.6-1.4); GLOM FILT RATE Estimated 141.5 mL/min (>60); POTASSIUM 3.6 mmol/L (3.5-5.1)
[2016-09-06 04:19] LABS: ARTERIAL BLD GAS O2 SATURATION 96.2 % (90.0-100.0); ARTERIAL BLOOD GAS ALLEN TEST NORMAL; ARTERIAL BLOOD GAS ART SITE RIGHT RADIAL; ARTERIAL BLOOD GAS CARBOXY HB 0.5 %sat (0.0-9.0); ARTERIAL BLOOD GAS DELIVERY VENT; ARTERIAL BLOOD GAS HCO3 30.7 mmol/L; ARTERIAL BLOOD GAS MET HB 0.8 %sat (0.0-2.0); ARTERIAL BLOOD GAS PCO2 43.3 mmHg (35.0-45.0); ARTERIAL BLOOD GAS PO2 76.8 mmHg (80.0-100); ARTERIAL BLOOD GAS VENT MODE AC; ARTERIAL BLOOD GAS pH 7.459 (7.350-7.450); ARTERIAL DRAW? YES
[2016-09-06 05:22] LABS: BASOPHIL% 0.1 % (0-2.5); EOSINOPHIL# 0.1 X10e3 (0-0.7); EOSINOPHIL% 0.3 % (0.0-7.0); HEMATOCRIT 29.6 % (38.0-50.0); HEMOGLOBIN 9.6 gm/dL (13.0-16.0); LYMPHOCYTE# 6.7 X10e3 (1.0-3.5); LYMPHOCYTE% 33.9 % (17.0-45.0); MEAN CELL VOLUME 96.4 FL (83-96); MEAN CORPUSCULAR HEMOGLOBIN 31.3 PG (28-34); MEAN CORPUSCULAR HGB CONC 32.5 g/dL (30-36); MEAN PLATELET VOLUME 8.2 FL (6.5-11.5); NEUTROPHIL# 10.1 X10e3 (1.5-7.1); NEUTROPHIL% 50.7 % (40-75); PLATELET COUNT 245 X10e3 (140-420); RED BLOOD COUNT 3.07 X10e (3.90-5.60); RED CELL DISTRIBUTION WIDTH 18.5 % (11.0-15.5); WHITE BLOOD COUNT 19.9 X10e3 (4.0-10.5)
[2016-09-06 05:25] LABS: DIFF IND NO
[2016-09-06 05:51] LABS: CREATININE SERUM 0.5 mg/dL (0.6-1.4); GLOM FILT RATE Estimated 129.1 mL/min (>60); MAGNESIUM 2.1 mg/dL (1.6-3.0)
[2016-09-06 05:55] LABS: POTASSIUM 2.8 mmol/L (3.5-5.1)
[2016-09-07 04:02] LABS: BASOPHIL% 0.1 % (0-2.5); EOSINOPHIL% 0.1 % (0.0-7.0); HEMOGLOBIN 10.6 gm/dL (13.0-16.0); LYMPHOCYTE# 2.1 X10e3 (1.0-3.5); LYMPHOCYTE% 12.7 % (17.0-45.0); MEAN CELL VOLUME 95.4 FL (83-96); MEAN CORPUSCULAR HEMOGLOBIN 31.5 PG (28-34); MEAN PLATELET VOLUME 7.8 FL (6.5-11.5); MONOCYTE# 1.7 X10e3 (0-1.0); MONOCYTE% 10.2 % (3.0-12.0); NEUTROPHIL# 12.6 X10e3 (1.5-7.1); NEUTROPHIL% 76.9 % (40-75); PLATELET COUNT 255 X10e3 (140-420); RED BLOOD COUNT 3.35 X10e (3.90-5.60); RED CELL DISTRIBUTION WIDTH 18.6 % (11.0-15.5); WHITE BLOOD COUNT 16.4 X10e3 (4.0-10.5)
[2016-09-07 04:03] LABS: DIFF IND NO
[2016-09-07 04:11] LABS: ARTERIAL BLD GAS O2 SATURATION 96.7 % (90.0-100.0); ARTERIAL BLOOD GAS ALLEN TEST NORMAL; ARTERIAL BLOOD GAS ART SITE RIGHT RADIAL; ARTERIAL BLOOD GAS CARBOXY HB 0.5 %sat (0.0-9.0); ARTERIAL BLOOD GAS DELIVERY VENT; ARTERIAL BLOOD GAS HCO3 30.5 mmol/L; ARTERIAL BLOOD GAS MET HB 0.8 %sat (0.0-2.0); ARTERIAL BLOOD GAS PCO2 31.9 mmHg (35.0-45.0); ARTERIAL BLOOD GAS PO2 71.3 mmHg (80.0-100); ARTERIAL BLOOD GAS VENT MODE A/C; ARTERIAL BLOOD GAS pH 7.589 (7.350-7.450); ARTERIAL DRAW? YES
[2016-09-07 04:27] LABS: ALBUMIN SERUM 1.9 g/dL (3.5-5.0); BILIRUBIN,TOTAL 0.5 mg/dL (0.2-2.0); CALCIUM SERUM 7.3 mg/dL (8.4-10.2); CREATININE SERUM 0.5 mg/dL (0.6-1.4); GLOM FILT RATE Estimated 129.1 mL/min (>60); PROTEIN TOTAL SERUM 5.8 g/dL (6.0-8.3)
[2016-09-07 04:28] LABS: POTASSIUM 2.3 mmol/L (3.5-5.1)
[2016-09-07 09:47] LABS: %MB 4.1 % (0.0-4.0); MB 2.9 ng/ml
[2016-09-08 04:42] LABS: ARTERIAL BLD GAS O2 SATURATION 95.2 % (90.0-100.0); ARTERIAL BLOOD GAS ALLEN TEST NORMAL; ARTERIAL BLOOD GAS ART SITE RIGHT RADIAL; ARTERIAL BLOOD GAS CARBOXY HB 0.6 %sat (0.0-9.0); ARTERIAL BLOOD GAS HCO3 31.3 mmol/L; ARTERIAL BLOOD GAS PCO2 35.8 mmHg (35.0-45.0); ARTERIAL BLOOD GAS PO2 67.3 mmHg (80.0-100); ARTERIAL BLOOD GAS pH 7.549 (7.350-7.450); ARTERIAL DRAW? YES
[2016-09-08 04:43] LABS: ARTERIAL BLOOD GAS DELIVERY VENT; ARTERIAL BLOOD GAS VENT MODE AC
[2016-09-08 05:54] LABS: BASOPHIL% 0.1 % (0-2.5); EOSINOPHIL% 0.1 % (0.0-7.0); HEMATOCRIT 28.2 % (38.0-50.0); HEMOGLOBIN 9.2 gm/dL (13.0-16.0); LYMPHOCYTE# 2.6 X10e3 (1.0-3.5); LYMPHOCYTE% 12.9 % (17.0-45.0); MEAN CELL VOLUME 96.7 FL (83-96); MEAN CORPUSCULAR HEMOGLOBIN 31.5 PG (28-34); MEAN CORPUSCULAR HGB CONC 32.6 g/dL (30-36); MEAN PLATELET VOLUME 8.2 FL (6.5-11.5); MONOCYTE# 2.2 X10e3 (0-1.0); MONOCYTE% 10.8 % (3.0-12.0); NEUTROPHIL# 15.3 X10e3 (1.5-7.1); NEUTROPHIL% 76.1 % (40-75); PLATELET COUNT 229 X10e3 (140-420); RED BLOOD COUNT 2.92 X10e (3.90-5.60); RED CELL DISTRIBUTION WIDTH 18.7 % (11.0-15.5); WHITE BLOOD COUNT 20.1 X10e3 (4.0-10.5)
[2016-09-08 05:56] LABS: DIFF IND NO
[2016-09-08 06:34] LABS: ALBUMIN SERUM 1.7 g/dL (3.5-5.0); BILIRUBIN,TOTAL 0.1 mg/dL (0.2-2.0); CREATININE SERUM 0.5 mg/dL (0.6-1.4); GLOM FILT RATE Estimated 129.1 mL/min (>60); POTASSIUM 3.2 mmol/L (3.5-5.1); PROTEIN TOTAL SERUM 4.9 g/dL (6.0-8.3)
[2016-09-09 04:47] LABS: ARTERIAL BLD GAS O2 SATURATION 96.6 % (90.0-100.0); ARTERIAL BLOOD GAS ALLEN TEST NORMAL; ARTERIAL BLOOD GAS ART SITE RIGHT RADIAL; ARTERIAL BLOOD GAS CARBOXY HB 0.5 %sat (0.0-9.0); ARTERIAL BLOOD GAS DELIVERY VENT; ARTERIAL BLOOD GAS HCO3 32.2 mmol/L; ARTERIAL BLOOD GAS PCO2 31.4 mmHg (35.0-45.0); ARTERIAL BLOOD GAS PO2 68.9 mmHg (80.0-100); ARTERIAL BLOOD GAS VENT MODE AC; ARTERIAL DRAW? YES
[2016-09-09 05:18] LABS: MAGNESIUM 1.8 mg/dL (1.6-3.0); POTASSIUM 3.3 mmol/L (3.5-5.1)
== END 2016-09-09 14:00 | disposition other institution (70) | DRG 853 ==
LOC: CED 03:32 → C3A PCU 06:07 → CEDOF 06:07 → CICCU3 06:07 → CICCU2 06:07 → CEDOF 06:23 → CED 06:23 → CICCU2 09:07 → CEDOF 09:07 → C3A PCU 08-25 22:25 → CICCU3 08-28 17:15 → CICCU2 09-03 18:13
PROVIDERS: Emergency Medicine; Hospitalist; Internal Medicine; Internal Medicine Pulmonary Disease; Nurse Practitioner; Physician Assistant Medical
PROC: 0B9J8ZX Drainage of Left Lower Lung Lobe, Via Natural or Artificial Opening Endoscopic, Diagnostic (ICD-10-PCS; 2016-08-15)
PROC: 5A1945Z Respiratory Ventilation, 24-96 Consecutive Hours (ICD-10-PCS; 2016-08-15)
PROC: 02HV33Z Insertion of Infusion Device into Superior Vena Cava, Percutaneous Approach (ICD-10-PCS; 2016-08-15)
PROC: 4A02X4A Measurement of Cardiac Electrical Activity, Guidance, External Approach (ICD-10-PCS; 2016-08-15)
PROC: 0BH17EZ Insertion of Endotracheal Airway into Trachea, Via Natural or Artificial Opening (ICD-10-PCS; principal; 2016-08-15 08:11)
PROC: 0B978ZZ Drainage of Left Main Bronchus, Via Natural or Artificial Opening Endoscopic (ICD-10-PCS; 2016-08-15 08:11)
PROC: 30243N1 Transfusion of Nonautologous Red Blood Cells into Central Vein, Percutaneous Approach (ICD-10-PCS; 2016-08-21)
PROC: 0B938ZZ Drainage of Right Main Bronchus, Via Natural or Artificial Opening Endoscopic (ICD-10-PCS; 2016-08-28)
PROC: 0B9C8ZX Drainage of Right Upper Lung Lobe, Via Natural or Artificial Opening Endoscopic, Diagnostic (ICD-10-PCS; 2016-08-28)
PROC: 0BH17EZ Insertion of Endotracheal Airway into Trachea, Via Natural or Artificial Opening (ICD-10-PCS; 2016-08-28)
PROC: 5A1955Z Respiratory Ventilation, Greater than 96 Consecutive Hours (ICD-10-PCS; 2016-08-28)
DX: A41.9 Sepsis, unspecified organism (principal); J69.0 Pneumonitis due to inhalation of food and vomit; R65.21 Severe sepsis with septic shock; E43 Unspecified severe protein-calorie malnutrition; J96.01 Acute respiratory failure with hypoxia; J96.02 Acute respiratory failure with hypercapnia; E83.42 Hypomagnesemia; T17.590A Other foreign object in bronchus causing asphyxiation, initial encounter; J15.8 Pneumonia due to other specified bacteria; R13.10 Dysphagia, unspecified; J98.11 Atelectasis; F73 Profound intellectual disabilities; G80.9 Cerebral palsy, unspecified; G40.909 Epilepsy, unspecified, not intractable, without status epilepticus; E87.6 Hypokalemia; X58.XXXA Exposure to other specified factors, initial encounter; Z51.5 Encounter for palliative care; Z66 Do not resuscitate; Y95 Nosocomial condition; D63.8 Anemia in other chronic diseases classified elsewhere; I10 Essential (primary) hypertension; Z68.23 Body mass index [BMI] 23.0-23.9, adult; Z87.01 Personal history of pneumonia (recurrent); Z93.3 Colostomy status; Z93.1 Gastrostomy status
CPT/HCPCS: 36415; 36600; 71010; 71250; 80048; 80053; 80076; 80164; 80184; 80200; 80202; 82150; 82550; 82553; 82803; 83605; 83690; 83735; 83880; 84100; 84132; 84443; 84484; 85014; 85018; 85025; 85027; 85610; 85730; 86850; 86900; 86901; 86923; 87040; 87070; 87077; 87102; 87106; 87116; 87186; 87205; 87206; 87252; 87254; 87278; 88108; 88305; 88312; 89051; 93005; 94002; 94003; 94640; 94667; 94668; 94760; 94761; 96365; 99291; C9254; J0171; J0330; J0610; J0695; J1580; J1650; J1720; J1940; J1953; J1956; J2060; J2250; J2543; J3010; J3260; J3360; J3370; J3475; P9016